=== PATIENT | female | born 1985 | race Native Hawaiian/Other Pacific Islander ===

== ENCOUNTER 2016-05-29 17:51 | Outpatient (CLI) | payer MEDICAID ==
[2016-05-29 18:50] LABS: APPEARANCE,URINE SLIGHTLY-CLOUDY; BILIRUBIN,URINE NEGATIVE (NEGATIVE); GLUCOSE, URINE NEGATIVE (NEGATIVE); KETONES,URINE NEGATIVE (NEGATIVE); LEUKOCYTE ESTERASE,URINE SMALL (NEGATIVE); NITRITE,URINE NEGATIVE (NEGATIVE); PROTEIN,URINE NEGATIVE (NEGATIVE); URINE SPECIFIC GRAVITY 1.016
[2016-05-29 19:06] LABS: URINE BARBITURATES SCREEN NEGATIVE; URINE METHADONE SCREEN NEGATIVE; URINE OPIATES LOW NEGATIVE; URINE PHENCYCLIDINE SCREEN NEGATIVE
[2016-05-29] MEDS ORDERED: HYDROXYZINE PAMOATE 50 MG CAPSULE PO ONE (19:25)
[2016-05-29] MEDS ORDERED: HYDROXYZINE PAMOATE 50 MG CAPSULE ONE (19:42)
== END 2016-05-29 19:25 | disposition home or self-care (01) ==
LOC: ER 17:51 → EDSTATUS 17:59 → LC 19:25
PROVIDERS: ATTEND Obstetrics & Gynecology
PROC: 4A1HXCZ Monitoring of Products of Conception, Cardiac Rate, External Approach (ICD-10-PCS; principal; 2016-05-29)
DX: O47.03 False labor before 37 completed weeks of gestation, third trimester (principal); Z3A.35 35 weeks gestation of pregnancy
CPT/HCPCS: 59025; 81001; 80307; J3490

== ENCOUNTER 2016-06-28 20:16 | Inpatient (IN) | payer MEDICAID ==
[~2016-06-28 20:16] MED LIST: GLYCOPYRROLATE INJ 0.4 MG/2 ML VIAL ONE; NEOSTIGMINE METHYLSULFATE 10 MG/10 ML VIAL ONE; SUCCINYLCHOLINE CHLORIDE INJ 200 MG/10 ML VIAL ONE
[2016-06-28] MEDS ORDERED: ZOLPIDEM TARTRATE 5 MG TABLET PO PRN (20:21)
[2016-06-28] MEDS ORDERED: RINGERS SOLUTION,LACTATED 300 ML IV ONE (20:21)
[2016-06-28] MEDS ORDERED: MAG HYDROX/AL HYDROX/SIMETH SUSP 30 ML UDCUP PO PRN (20:21)
[2016-06-28] MEDS ORDERED: ACETAMINOPHEN 325 MG TABLET PO PRN (20:21)
[2016-06-28] MEDS ORDERED: PENICILLIN G POTASSIUM 5,000,000 UNIT in DEXTROSE 5%-WATER 100 ML IV ONE (20:30)
[2016-06-28] MEDS ORDERED: DINOPROSTONE 10 MG VAGINAL INSERT.SR PV ONE (20:30)
[2016-06-28 20:36] LABS: APPEARANCE,URINE SLIGHTLY-CLOUDY; BILIRUBIN,URINE NEGATIVE (NEGATIVE); GLUCOSE, URINE NEGATIVE (NEGATIVE); KETONES,URINE TRACE mg/dL (NEGATIVE); LEUKOCYTE ESTERASE,URINE TRACE (NEGATIVE); NITRITE,URINE POSITIVE (NEGATIVE); PROTEIN,URINE NEGATIVE (NEGATIVE); URINE SPECIFIC GRAVITY 1.015
[2016-06-28 20:54] LABS: URINE BARBITURATES SCREEN NEGATIVE; URINE METHADONE SCREEN NEGATIVE; URINE OPIATES LOW NEGATIVE; URINE PHENCYCLIDINE SCREEN NEGATIVE
[2016-06-28 21:05] LABS: ABSOLUTE EOSINOPHILS # (AUTO) 0.2 10^3/uL (0.0-0.6); ABSOLUTE LYMPHOCYTES (AUTO) 1.2 10^3/uL (0.5-4.7); ABSOLUTE MONOCYTES (AUTO) 0.7 10^3/uL (0.1-1.4); ABSOLUTE NEUT (AUTO) 8.9 10^3/uL (1.7-8.2); BASOPHILS % (AUTO) 0.2 % (0-2); EOSINOPHILS % (AUTO) 1.6 % (0-6); LYMPHOCYTES % (AUTO) 10.6 % (13-45); MEAN CORPUSCULAR HEMOGLOBIN 27.9 pg (27.0-33.4); MEAN CORPUSCULAR HGB CONC 32.5 g/dL (32.0-36.0); MEAN CORPUSCULAR VOLUME 86 fl (80-97); MONOCYTES % (AUTO) 6.2 % (3-13); RED BLOOD COUNT 4.65 10^6/uL (3.72-5.28); SEGMENTED NEUTROPHILS % (AUTO) 81.4 % (42-78); WHITE BLOOD COUNT 10.9 10^3/uL (4.0-10.5)
[2016-06-28] MEDS ORDERED: DINOPROSTONE 10 MG VAGINAL INSERT.SR ONE (21:38)
[2016-06-28] MEDS: RINGERS SOLUTION,LACTATED 1,000 ML IV PRN (21:41)
--- NOTE | 2016-06-28 22:00 | L&D Flow Sheet ---
LD Flowsheet Datetime Report Generated by CPN: 06/28/2016 22:00 Datetime: 06/28/2016 21:45 NBP Sys/Lucia/Mean (mmHg): 108 (QS system process) : 67 (QS system process) : 81 (QS system process) Pulse: 78 (QS system process) LaborFlag: Labor (QS system process) Datetime: 06/28/2016 21:22 Level of Consciousness: Fully Conscious (Linda Heather, RN) DTR's/Clonus: DTRs 2+; No Clonus (Linda Romero RN) Headache: Denies (Linda Romero RN) Breath Sounds, Left: Clear and Equal (Linda Romero RN) Breath Sounds, Right: Clear and Equal (Linda Romero RN) Nausea/Vomiting: Denies (Linda Romero RN) RUQ Epigastric Pain: Denies (Linda Romero RN) Datetime: 06/28/2016 21:10 NBP Sys/Lucia/Mean (mmHg): 122 (QS system process) : 74 (QS system process) : 92 (QS system process) Pulse: 81 (QS system process) LaborFlag: Labor (QS system process) Datetime: 06/28/2016 20:59 Dilatation (cm): inner os closed/ outer os thin and 2-3cm (Linda Romero RN) Effacement (%): thick (Linda Romero RN) Station: oop (Linda Romero RN) Exam by: erna romero (Linda Romero RN)
[2016-06-28] MEDS ORDERED: PENICILLIN G-K 5 MILLION UNIT VIAL ONE (22:27)
[2016-06-28] MEDS ORDERED: MISOPROSTOL 0.2 MG TABLET ONE (23:04)
[2016-06-28] MEDS ORDERED: OXYTOCIN/NORMAL SALINE 20 UNIT/1,000 ML RTUINJ ONE (23:04)
[2016-06-28] MEDS ORDERED: LIDOCAINE 1% INJ-PF (10 MG/ML) 30 ML SDV ONE (23:04)
[2016-06-29] MEDS ORDERED: EPHEDRINE SULFATE INJ 50 MG/1 ML AMPULE ONE (00:25)
[2016-06-29] MEDS ORDERED: FENTANYL CITRATE INJ/PF 100 MCG/2 ML AMPUL ONE ×4 (00:25→05:09)
[2016-06-29] MEDS ORDERED: PHENYLEPHRINE HCL INJ/PF 10 MG/1 ML SDV ONE ×2 (00:25→02:27)
[2016-06-29] MEDS ORDERED: FENTANYL/BUPIVACAINE/NS/PF 200 MCG/100 ML RTUINJ EPI ONE (00:26)
[2016-06-29] MEDS ORDERED: BUPIVACAINE HCL 0.25 % INJ/PF (2.5 MG/1 ML) 30 ML VIAL ONE (00:26)
[2016-06-29] MEDS ORDERED: PENICILLIN G POTASSIUM 2,500,000 UNIT in DEXTROSE 5%-WATER 50 ML IV SCH (00:30)
[2016-06-29] MEDS: RINGERS SOLUTION,LACTATED 1,000 ML IV PRN ×2 (00:45→01:00)
[2016-06-29] MEDS ORDERED: PENICILLIN G-K 5 MILLION UNIT VIAL ONE (01:53)
[2016-06-29] MEDS ORDERED: CITRIC ACID/SODIUM CITRATE ORAL SOLN 15 ML UDCUP ONE (02:10)
[2016-06-29] MEDS ORDERED: CEFAZOLIN 2 GM/D5W RTU 2 GM/50 ML RTUPB IV ONE (02:10)
[2016-06-29] MEDS ORDERED: ACETAMINOPHEN 325 MG TABLET PO PRN (02:14)
[2016-06-29] MEDS ORDERED: DIPH/PERTUSS(ACELL)/TETANUS VAC/PF 0.5 ML SYR (>=10YO) IM PRN (02:14)
[2016-06-29] MEDS ORDERED: PROMETHAZINE HCL INJ 25 MG/1 ML VIAL IV PRN ×2 (02:14→05:19)
[2016-06-29] MEDS ORDERED: RINGERS SOLUTION,LACTATED 1,000 ML IV PRN (02:14)
[2016-06-29] MEDS ORDERED: SIMETHICONE 80 MG TAB.CHEW PO PRN (02:14)
[2016-06-29] MEDS ORDERED: MEASLES,MUMPS&RUBELLA VACC/PF 0.5 ML VIAL SUBCUT PRN (02:14)
[2016-06-29] MEDS ORDERED: OXYCODONE-ACETAMINOPHEN 5-325 MG TABLET PO PRN ×2 (02:14)
[2016-06-29] MEDS ORDERED: OXYTOCIN/NORMAL SALINE 1,000 ML IV PRN (02:14)
[2016-06-29] MEDS ORDERED: HYDROMORPHONE HCL INJ/PF 2 MG/ML AMPULE IV PRN (02:14)
[2016-06-29] MEDS ORDERED: ACETAMINOPHEN 100 ML IV PRN (02:14)
[2016-06-29] MEDS ORDERED: OXYTOCIN/NORMAL SALINE 0 UNIT/0 ML RTUINJ ONE (02:26)
[2016-06-29] MEDS ORDERED: OXYTOCIN 10 UNIT/ML VIAL ONE (02:27)
[2016-06-29] MEDS ORDERED: ONDANSETRON HCL INJ/PF 4 MG/2 ML SDV ONE (02:27)
[2016-06-29] MEDS ORDERED: SODIUM BICARBONATE 8.4% INJ 50 MEQ/50 ML DISP.SYRIN ONE (02:28)
[2016-06-29] MEDS ORDERED: LIDOCAINE 2%/EPINEPHRINE INJ 20 ML VIAL ONE (02:28)
[2016-06-29] MEDS ORDERED: MIDAZOLAM 2 MG/2 ML INJ ONE (03:09)
[2016-06-29] MEDS ORDERED: KETOROLAC TROMETHAMINE INJ/PF 30 MG/1 ML SDV INJ ONE (03:15)
[2016-06-29] MEDS ORDERED: PROPOFOL INJ 200 MG/20 ML VIAL IV ONE (03:33)
[2016-06-29] MEDS ORDERED: MORPHINE SULFATE 10 MG/ML INJ ONE (03:33)
[2016-06-29] MEDS ORDERED: NITROFURANTOIN MONOHYD/M-CRYST 100 MG CAPSULE PO ONE (04:30)
--- NOTE | 2016-06-29 04:30 | Operative Report ---
Operative Report DATE OF SURGERY: 06/29/16 PREOPERATIVE DIAGNOSIS: Brow/face presentation POSTOPERATIVE DIAGNOSIS: Same brown/face presentation with mentum anterior OPERATION: Primary via low transverse uterine incision with planned cystotomy SURGEON: DEO ESTRELLA WATERPROOF BAG SEWER: OR staff ANESTHESIA: GA TISSUE REMOVED OR ALTERED: Placenta COMPLICATIONS: The Carey catheter was not draining the bladder. The bladder was hugely distended obstructing access to the uterus. Therefore a very small cystotomy was made in the dome of the bladder. This decompressed the bladder and allowed access to the low uterine segment. ESTIMATED BLOOD LOSS: 500 mL INTRAOPERATIVE FINDINGS: Baby girl Apgars 7 and 8 7 lbs. 15 oz. brow presentation with mentum anterior. PROCEDURE: Patient was taken to the OR and placed in supine position after her spinal anesthesia. She is prepared and draped in sterile fashion. Carey was placed for drainage of the bladder. Low transverse incision was made and carried down the level of the fascia. The fascial incision was made with knife and extended bilaterally with curved Hyde scissors. The fascia was off the rectus muscles using sharp and blunt dissection. The rectus muscles are in the midline. At this point was determined determined that the bladder was greatly distended. The Carey did not appear to be working. The patient was under general anesthesia and we were working with a time limit. I initially attempted to use a 18-gauge needle on a 60 mL syringe to draw urine output the bladder from the dome however this was quite slow. Therefore a small half centimeter incision was made with scalpel blade which allowed me to decompress the bladder much quicker. The peritoneum was entered without incident. Bladder blade was placed in uterine segment was identified. A low transverse incision was made creating a bladder flap. Bladder blade was placed low transverse uterine incision was made with the knife and extended with fingertips. The baby was delivered with some fundal pressure. Mouth and nose were suctioned free. The cord is doubly clamped and cut. Baby is passed off to the applications administrator in attendance. The placenta was manually extracted with trailing membranes. The uterus was externalized wrapped in a moist lap sponge. Uterine contents wiped free. The head was low in the pelvis and there was an extension of the uterine incision to the left. A branch of the uterine artery was bleeding at the left incision and these were quickly clamped and tied off with a 0 chromic suture. Uterus was closed with a running locking layer of 0 chromic suture using the second layer to imbricate the first completing a double layer closure of the uterus. The serosa was closed with a running 2-0 chromic stitch. The pelvis was irrigated and suctioned free of fluid the uterus was replaced in the abdomen. Next the bladder was inspected. I was unable to locate the incision in the dome of the bladder on exam. The Carey catheter could be felt in the bladder. Next we filled the bladder with 200 mL of saline and there was no evidence of leaking. The saline was allowed to drain out of the bladder. Next the bladder was filled with 150 mL of sterile milk and there was no evidence of bladder leaking. The bladder appeared to be sealed. This makes sense as the incision made was smaller than a incision for a suprapubic catheter. As a safeguard I will drain the bladder for 10 days with Carey catheter in place. The abdominal wall peritoneum was closed with running 2-0 chromic stitch. Fascia was closed with a running 0 Vicryl in 2 segments. Jorge's layer was brought together with 0 plain gut stitch and the skin was closed with running subcuticular 4-0 undyed Vicryl stitch. The wound was dressed mother and baby did well.
--- NOTE | 2016-06-29 04:57 | Delivery Summary ---
Del Sum A-C Datetime Report Generated by CPN: 06/29/2016 04:57 ADMISSION DATA Chief Complaint: Scheduled Induction of Labor Indication for Induction: Maternal Diabetes Admission Impression: Induction of Labor Admit Provider Comments: efw = 8 lbs DELIVERY PERSONNEL Delivery Doctor:: Stephanie Costa MD Anesthesiologist:: Deidra Rubio MD OIL WELL FISHING TOOL TECHNICIAN:: Prem Hess CRNA Labor and Delivery Nurse:: Char Greenfield RNfiller picker Nurse:: Linda Romero RN Neonatal Nurse Practitioner:: LYNDA Hager Nursery Nurse:: Kailey Granadosb, RN Patient Safety Attendant/THEATER TEACHER: Yanelis Ji, ST Patient Safety Attendant/THEATER TEACHER: Judy Keys, ST MATERNAL INFORMATION Delivery Anesthesia: General Maternal Complications: None LABOR SUMMARY EDC: 06/27/2016 00:00 No. Babies in Womb: 1 Attempted: No Labor Anesthesia: Epidural LABOR INFORMATION Reason for Induction: Maternal Diabetes Onset of Labor: 06/29/2016 22:41 Cervical Ripening Agents: Cervidil Oxytocin: N/A Group B Beta Strep: positive Antibiotics # of Doses: 1 Antibiotics Time of Last Dose: 3 Name of Antibiotic Given: pcn MEMBRANES Membranes Rupture Method: Spontaneous Rupture of Membranes: 06/28/2016 22:56 Length of Rupture (hr): 4.13 Amniotic Fluid Color: Light Meconium Amniotic Fluid Amount: Copious Amniotic Fluid Odor: Normal STAGES OF LABOR Stage 3 hr: 0 Stage 3 min: 1 Total Time in Labor hr: -19 Total Time in Labor min: -36 VAGINAL DELIVERY Episiotomy: None Laceration Extension: N/A Laceration Type: None CSECTION DELIVERY Primary Indication: Transverse/Complex Presentation Secondary Indication: N/A CSection Urgency: Non-Scheduled CSection Incidence: Primary Labor: Labor Elective: N/A CSection Incision: Lower Uterine Transverse BABY A INFORMATION Delivery Date/Time: 06/29/2016 03:04 Method of Delivery: (Annotations: Data stored by [facility] on behalf of user) Born in Route : No : N/A Forceps: N/A Vacuum Extraction: N/A Shoulder Dystocia : No PRESENTATION/POSITION BABY A Presentation: Other Cephalic Presentation: Brow Breech Presentation: N/A PLACENTA INFORMATION BABY A Placenta Delivery Time : 06/29/2016 03:05 Placenta Method of Delivery: Manual Removal Placenta Status: Delivered SCORES BABY A Heart Rate 1 min: >100 bpm Resp Effort 1 min: Good Cry Reflex Irritability 1 min: Cough or Sneeze or Pulls Away Muscle Tone 1 min: Some Flexion of Extremities Color 1 min: Blue/Pale SCORE 1 MIN: 7 Heart Rate 5 min: >100 bpm Resp Effort 5 min: Good Cry Reflex Irritability 5 min: Cough or Sneeze or Pulls Away Muscle Tone 5 min: Active Motion Color 5 min: Body [place], Extremities Blue SCORE 5 MIN: 9 INFORMATION BABY A Gestational Age at Delivery: 40.2 Gestational Status: Full Term- 39- 40.6 Weeks Outcome : Liveborn Infant Condition : Stable Infant Sex: Female IDENTIFICATION BABY A Infant Verification Date/Time: 06/29/2016 03:24 ID Band Number: [id number] Mother's Name Verified: Yes Infant RN Verifying : K Fanny RN Additional Verifying Personnel: Lynn Romero RN WEIGHT/LENGTH BABY A Birthweight (gm): 3590 Weight (lb): 7 Infant Weight (oz): 15 Infant Length (in): 19.50 Length (cm): 49.53 CORD INFORMATION BABY A No. Cord Vessels: 3 Nuchal Cord : N/A Cord Blood Taken: Yes-For Storage (Mom's Blood type +) Infant Suction: Mouth; Nose ASSESSMENT BABY A Skin to Skin: No BABY B INFORMATION : N/A
[2016-06-29] MEDS ORDERED: MEPERIDINE HCL/PF INJ 25 MG/1 ML DISP.SYRIN ONE (05:09)
[2016-06-29] MEDS ORDERED: FENTANYL CITRATE INJ/PF 100 MCG/2 ML AMPUL IV PRN ×2 (05:17→05:18)
[2016-06-29] MEDS ORDERED: FENTANYL CITRATE INJ/PF 100 MCG/2 ML AMPUL INJ PRN (05:18)
[2016-06-29] MEDS ORDERED: ONDANSETRON HCL INJ/PF 4 MG/2 ML SDV IV PRN (05:20)
[2016-06-29] MEDS ORDERED: DIPHENHYDRAMINE HCL 50 MG/ML VIAL IV PRN (05:21)
[2016-06-29] MEDS ORDERED: LABETALOL HCL INJ 20 MG/4 ML DISP.SYRIN IV PRN (05:22)
[2016-06-29] MEDS ORDERED: MEPERIDINE HCL/PF INJ 25 MG/1 ML DISP.SYRIN IV PRN (05:24)
--- NOTE | 2016-06-29 06:29 | Admission Physical ---
Datetime Report Generated by CPN: 06/29/2016 06:28 CURRENT ADMISSION Chief Complaint: Scheduled Induction of Labor Indication for Induction: Maternal Diabetes Admit Plan: Admit to Unit; Initiate Labor Induction Protocol ALLERGIES Medication Allergies: No Medication Allergies: No Known Allergies (06/28/2016) Medication Allergies: No Known Allergies (05/29/2016) Medication Allergies: No Known Allergies (04/27/2012) Latex: No Latex Allergies Food Allergies: denies Environmental Allergies: denies OBSTETRICAL HISTORY EDC: 06/27/2016 00:00 : 3 Para: 2 Term: 2 : 0 SAB: 0 IAB: 0 Livin Gestational Diabetes: Yes Rh Sensitization: No Incompetent Cervix: No CHRISTOPHER: No Infertility: No ART Treatment: No Uterine Anomaly: No IUGR: No Hx Previous C/S: No Macrosomia: No Hx Loss/Stillborn: No PIH: No Hx : No Placenta Previa/Abruption: No Depression/PP Depression: No PTL/PROM: No Post Hemorrhage: No Current Procedures: Ultrasound; NST Obstetrical History Comments: G1:04/2012: 41 weeks G2:01/2014: 39.2 weeks G3: current , GDM, diet controlled SEE RECORDS Alcohol: No Marijuana : No Cocaine: No Other Illicit Drugs: No Cigarettes: Former Smoker. 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 Surgery: No Heart Disease: No Hosp/Surgery: Yes Autoimmune Disorder: No Anesthetic Complications: No Kidney Disease: No Abnormal Pap Smear: No Neuro/Epilepsy: No Psychiatric Disorders: No Other Medical Diseases: No Hepatitis/Liver Disease: No Significant Family History: No Varicosities/Phlebitis: No Trauma/Violence : No Thyroid Dysfunction: No Medical History Comments: x 2 INFECTIOUS HISTORY Gonorrhea: No Genital Herpes: No Chlamydia: No Tuberculosis: No Syphilis: No Hepatitis: No HIV/AIDS Exposure: No Rash or Viral Illness: No HPV: No PHYSICAL EXAM General: Normal HEENT: Normal Neurologic: Normal Thyroid: Normal Heart: Normal Lungs: Normal Breast: Deferred Back: Normal Abdomen: Normal Genitourinary Exam: Normal Extremities: Normal DTRs: Normal Pelvic Type: Adequate Vital Signs: Reviewed VAGINAL EXAM Dilatation: 1 Effacement: 50 Station: -2 MEMBRANES Pooling: Negative Membranes: Intact FETUS A EGA: 40.1 FHR- Baseline: 120 Decelerations: None FHR Category: Category I Presentation: Oblique Admit Comment: efw = 8 lbs PLANS FOR LABOR AND DELIVERY Labor and Delivery: None Pain Management: Natural Feeding Preference: Formula Benefit of Breast Feed Discussed: Yes Circumcision: N/A INFORMED CONSENT Signature: with User ID: [email or web address]
--- NOTE | 2016-06-29 07:01 | L&D Flow Sheet ---
LD Flowsheet Datetime Report Generated by CPN: 06/29/2016 07:00 Datetime: 06/29/2016 06:16 NBP Sys/Lucia/Mean (mmHg): 98 (QS system process) : 51 (QS system process) : 69 (QS system process) Pulse: 86 (QS system process) Datetime: 06/29/2016 06:15 Pulse: 95 (QS system process) Pulse: 93 (QS system process) SpO2 (%): 100 (QS system process) SpO2 (%): 94 (QS system process) Datetime: 06/29/2016 06:11 NBP Sys/Lucia/Mean (mmHg): 108 (QS system process) : 64 (QS system process) : 81 (QS system process) Pulse: 73 (QS system process) Datetime: 06/29/2016 06:10 Vital Signs Stage of : Recovery (Char Greenfield, RN) Pulse: 76 (QS system process) Respirations: 18 (Char Greenfield, RN) SpO2 (%): 99 (QS system process) Pain Pain Scale: 4 (Char Greenfield, RN) Pain Presence: Constant (Char Greenfield, RN) Pain Type: Burning (Char Greenfield, RN) Pain Location: Abdomen (Char Greenfield, RN) Pain Goal: 1 (Char Greenfield, RN) Pain Relief Measures: Pain Medication Given (Char Greenfeild, RN) Datetime: 06/29/2016 06:06 NBP Sys/Lucia/Mean (mmHg): 110 (QS system process) : 65 (QS system process) : 82 (QS system process) Pulse: 69 (QS system process) Datetime: 06/29/2016 06:05 Pulse: 73 (QS system process) SpO2 (%): 99 (QS system process) Datetime: 06/29/2016 06:01 NBP Sys/Lucia/Mean (mmHg): 112 (QS system process) : 64 (QS system process) : 82 (QS system process) Pulse: 71 (QS system process) Datetime: 06/29/2016 06:00 Vital Signs Stage of : Recovery (Char Greenfield, RN) Pulse: 67 (QS system process) Pulse: 83 (QS system process) Respirations: 18 (Char Greenfield, RN) SpO2 (%): 99 (QS system process) SpO2 (%): 90 (QS system process) Pain Pain Scale: 3 (Char Greenfield, RN) Pain Presence: Constant (Char Greenfield, RN) Pain Type: Burning (Char Greenfield, RN) Pain Location: Abdomen (Char Greenfield, RN) Pain Goal: 1 (Char Greenfield, RN) Datetime: 06/29/2016 05:56 NBP Sys/Lucia/Mean (mmHg): 111 (QS system process) : 62 (QS system process) : 81 (QS system process) Pulse: 68 (QS system process) Datetime: 06/29/2016 05:55 Pulse: 71 (QS system process) SpO2 (%): 99 (QS system process) Datetime: 06/29/2016 05:51 NBP Sys/Lucia/Mean (mmHg): 113 (QS system process) : 68 (QS system process) : 85 (QS system process) Pulse: 77 (QS system process) Datetime: 06/29/2016 05:50 Pulse: 67 (QS system process) SpO2 (%): 99 (QS system process) Datetime: 06/29/2016 05:48 Vital Signs Stage of : Recovery (Char Greenfield, RN) Datetime: 06/29/2016 05:46 NBP Sys/Lucia/Mean (mmHg): 115 (QS system process) : 69 (QS system process) : 88 (QS system process) Pulse: 71 (QS system process) Datetime: 06/29/2016 05:45 Vital Signs Stage of : Recovery (Char Greenfield, RN) Pulse: 74 (QS system process) Respirations: 16 (Char Greenfield, RN) SpO2 (%): 99 (QS system process) Datetime: 06/29/2016 05:44 Pain Pain Scale: 2 (Char Greenfield, RN) Pain Presence: Constant (Char Greenfield, RN) Pain Type: Burning (Char Greenfield, RN) Pain Location: Abdomen (Char Greenfield, RN) Pain Goal: 1 (Char Greenfield, RN) Pain Relief Measures: Pain Medication Given (Char Greenfield, RN) Datetime: 06/29/2016 05:41 NBP Sys/Lucia/Mean (mmHg): 111 (QS system process) : 69 (QS system process) : 84 (QS system process) Pulse: 75 (QS system process) Datetime: 06/29/2016 05:40 Pulse: 74 (QS system process) SpO2 (%): 100 (QS system process) Datetime: 06/29/2016 05:36 NBP Sys/Lucia/Mean (mmHg): 112 (QS system process) : 64 (QS system process) : 83 (QS system process) Pulse: 62 (QS system process) Datetime: 06/29/2016 05:35 Pulse: 64 (QS system process) SpO2 (%): 100 (QS system process) Datetime: 06/29/2016 05:31 NBP Sys/Lucia/Mean (mmHg): 117 (QS system process) : 71 (QS system process) : 89 (QS system process) Pulse: 73 (QS system process) Datetime: 06/29/2016 05:30 Vital Signs Stage of : Recovery (Char Greenfield, RN) Pulse: 67 (QS system process) Respirations: 18 (Char Greenfield, RN) SpO2 (%): 100 (QS system process) Pain Pain Scale: 2 (Char Greenfield, RN) Pain Presence: Constant (Char Greenfield, RN) Pain Type: Burning (Char Greenfield, RN) Pain Location: Abdomen (Char Greenfield, RN) Pain Goal: 1 (Char Greenfield, RN) Pain Relief Measures: Comfort Measures (Char Greenfield, RN) Datetime: 06/29/2016 05:26 Vital Signs Stage of : Recovery (Char Greenfield, RN) NBP Sys/Lucia/Mean (mmHg): 118 (QS system process) : 70 (QS system process) : 89 (QS system process) Pulse: 74 (QS system process) Datetime: 06/29/2016 05:25 Pulse: 73 (QS system process) SpO2 (%): 100 (QS system process) Datetime: 06/29/2016 05:21 NBP Sys/Lucia/Mean (mmHg): 116 (QS system process) : 66 (QS system process) : 85 (QS system process) Pulse: 63 (QS system process) Datetime: 06/29/2016 05:20 Pulse: 60 (QS system process) SpO2 (%): 100 (QS system process) Datetime: 06/29/2016 05:17 NBP Sys/Lucia/Mean (mmHg): 119 (QS system process) : 67 (QS system process) : 88 (QS system process) Pulse: 60 (QS system process) Datetime: 06/29/2016 05:15 Vital Signs Stage of : Recovery (Char Greenfield, RN) Pulse: 60 (QS system process) Respirations: 16 (Char Greenfield, RN) SpO2 (%): 100 (QS system process) Pain Pain Scale: 3 (Char Greenfield, RN) Pain Presence: Constant (Char Greenfield, RN) Pain Type: Burning (Char Greenfield, RN) Pain Location: Abdomen (Char Greenfield, RN) Pain Goal: 1 (Char Greenfield, RN) Pain Relief Measures: Pain Medication Given (Char Greenfield, RN) Datetime: 06/29/2016 05:12 Vital Signs Stage of : Recovery (Char Greenfield, RN) NBP Sys/Lucia/Mean (mmHg): 122 (QS system process) : 57 (QS system process) : 82 (QS system process) Pulse: 61 (QS system process) Datetime: 06/29/2016 05:10 Pulse: 63 (QS system process) SpO2 (%): 100 (QS system process) Datetime: 06/29/2016 05:05 Pulse: 64 (QS system process) SpO2 (%): 100 (QS system process) Datetime: 06/29/2016 05:01 NBP Sys/Lucia/Mean (mmHg): 121 (QS system process) : 72 (QS system process) : 90 (QS system process) Pulse: 64 (QS system process) Datetime: 06/29/2016 05:00 Vital Signs Stage of : Recovery (Char Greenfield, RN) Pulse: 61 (QS system process) SpO2 (%): 100 (QS system process) Datetime: 06/29/2016 04:56 NBP Sys/Lucia/Mean (mmHg): 117 (QS system process) : 72 (QS system process) : 90 (QS system process) Pulse: 62 (QS system process) Datetime: 06/29/2016 04:55 Pulse: 60 (QS system process) SpO2 (%): 100 (QS system process) Datetime: 06/29/2016 04:51 NBP Sys/Lucia/Mean (mmHg): 121 (QS system process) : 68 (QS system process) : 90 (QS system process) Pulse: 63 (QS system process) Datetime: 06/29/2016 04:50 Pulse: 66 (QS system process) SpO2 (%): 100 (QS system process) Datetime: 06/29/2016 04:47 Vital Signs Stage of : Recovery (Char Greenfield, RN) Pain Pain Scale: 1 (Char Greenfield, RN) Pain Presence: Constant (Char Greenfield, RN) Pain Type: Ache (Char Greenfield, RN) Pain Location: Abdomen (Char Greenfield, RN) Pain Goal: 1 (Char Greenfield, RN) Datetime: 06/29/2016 04:46 NBP Sys/Lucia/Mean (mmHg): 117 (QS system process) : 62 (QS system process) : 84 (QS system process) Pulse: 70 (QS system process) Datetime: 06/29/2016 04:45 Pulse: 63 (QS system process) SpO2 (%): 100 (QS system process) Datetime: 06/29/2016 04:41 NBP Sys/Lucia/Mean (mmHg): 114 (QS system process) : 63 (QS system process) : 84 (QS system process) Pulse: 74 (QS system process) SpO2 (%): 82 (QS system process) Datetime: 06/29/2016 04:40 Pulse: 66 (QS system process) SpO2 (%): 100 (QS system process) Datetime: 06/29/2016 04:36 NBP Sys/Lucia/Mean (mmHg): 115 (QS system process) : 72 (QS system process) : 88 (QS system process) Pulse: 63 (QS system process) Datetime: 06/29/2016 04:35 Pulse: 66 (QS system process) SpO2 (%): 100 (QS system process) Datetime: 06/29/2016 04:31 NBP Sys/Lucia/Mean (mmHg): 113 (QS system process) : 72 (QS system process) : 87 (QS system process) Pulse: 71 (QS system process) Datetime: 06/29/2016 04:30 Pulse: 59 (QS system process) SpO2 (%): 100 (QS system process) Datetime: 06/29/2016 04:26 NBP Sys/Lucia/Mean (mmHg): 111 (QS system process) : 64 (QS system process) : 83 (QS system process) Pulse: 64 (QS system process) Datetime: 06/29/2016 04:25 Pulse: 64 (QS system process) SpO2 (%): 100 (QS system process) Datetime: 06/29/2016 04:23 Vital Signs Stage of : Recovery (Linda Romero RN) Respirations: 16 (Linda Romero RN) Temperature (F): 97.4 (Linda Romero RN) Temperature (C): 36.3 (QS system process) Temperature Route: Axillary (Linda Romero RN) Pain Pain Scale: unable to assess, patient sleeping (Linda Kossmann, RN) Datetime: 06/29/2016 04:21 Vital Signs Stage of : Recovery (Linda Kossmann, RN) NBP Sys/Lucia/Mean (mmHg): 105 (QS system process) : 59 (QS system process) : 77 (QS system process) Pulse: 64 (QS system process) Datetime: 06/29/2016 04:20 Pulse: 67 (QS system process) SpO2 (%): 98 (QS system process) Patient Care Comments: Arrived in PACU (Linda Romero RN) LaborFlag: Labor (QS system process) Datetime: 06/29/2016 02:33 Patient Care Comments: Pt transferred to OR in bed accompanied by RNs, Dr Rubio (Desiree Escobedo RN) Communication Comments: Report to JESSIKA Greenfield. Care relinquished to JESSIKA Greenfield but JESSIKA Romero went to OR to assist. (Linda Romero RN) Datetime: 06/29/2016 02:31 Medication Comments: ancef 2 gm (Desiree Escobedo RN) Datetime: 06/29/2016 02:30 Uterine Activity Monitor Mode: External; Palpation (Linda Kossmann, RN) Frequency (min): 2-3 (Linda Kossmann, RN) Quality: Moderate (Linda Kossmann, RN) Duration (sec): 40-80 (Linda Kossmann, RN) Resting Tone (Palpate): Relaxed (Linda Kossmann, RN) Assessment A Monitor Mode: External US (Linda Susansmann, RN) FHR Baseline Rate : 140 (Linda Kossmann, RN) Variability: Moderate 6-25 bpm (Linda Kossmann, RN) Decelerations: Variable (Linda Kossmann, RN) Datetime: 06/29/2016 02:29 Communication Communication: Provider at Bedside (Char Greenfield, RN) Communication Comments: Dr [place]head at the bedside to bolus epidural (Char Greenfield, RN) Datetime: 06/29/2016 02:27 NBP Sys/Lucia/Mean (mmHg): 116 (QS system process) : 60 (QS system process) : 83 (QS system process) Pulse: 72 (QS system process) LaborFlag: Labor (QS system process) Datetime: 06/29/2016 02:26 Pulse: 72 (QS system process) SpO2 (%): 100 (QS system process) LaborFlag: Labor (QS system process) Datetime: 06/29/2016 02:21 Pulse: 72 (QS system process) SpO2 (%): 100 (QS system process) LaborFlag: Labor (QS system process) Datetime: 06/29/2016 02:16 Pulse: 85 (QS system process) SpO2 (%): 100 (QS system process) Pain Pain Scale: 4 (Linda Romero RN) Pain Presence: Intermittent (Linda Romero RN) Pain Type: Contraction (Linda Romero RN) Pain Location: Abdomen (Linda Romero RN) Pain Goal: 0 (Linda Romero RN) Pain Relief Measures: Comfort Measures (Annotations: Patient states epidural isnt working. provider aware.) (Linda Romero RN) LaborFlag: Labor (QS system process) Datetime: 06/29/2016 02:15 Uterine Activity Monitor Mode: External; Palpation (Linda Kossmann, RN) Frequency (min): 1.5-3 (Linda Romero, RN) Quality: Moderate (Linda Romero, RN) Duration (sec): 50-70 (Linda Romero, RN) Resting Tone (Palpate): Relaxed (Linda Romero, RN) Assessment A Monitor Mode: External US (Linda Romero, RN) FHR Baseline Rate : 150 (Linda Romero, RN) Variability: Moderate 6-25 bpm (Linda Romero, RN) Decelerations: Variable (Linda Duránkevin, RN) Datetime: 06/29/2016 02:13 NBP Sys/Lucia/Mean (mmHg): 123 (QS system process) : 66 (QS system process) : 89 (QS system process) Pulse: 84 (QS system process) Medication Comments: bicitra 15 mL PO (Desiree Escobedo RN) LaborFlag: Labor (QS system process) Datetime: 06/29/2016 02:12 Patient Care Comments: indio wipes to abd (Desiree Fanny, RN) Patient Care Comments: TEDs and SCDs applied (Desiree Fanny, RN) Datetime: 06/29/2016 02:11 Pulse: 80 (QS system process) SpO2 (%): 100 (QS system process) LaborFlag: Labor (QS system process) Datetime: 06/29/2016 02:10 Anesthesia Comments: dr. emberightshead aware of epidural request (Linda Romero, RN) Datetime: 06/29/2016 02:09 Communication Comments: Appropriate personnel notified of urgent csection for malpresentation (Linda Kossmann, RN) Datetime: 06/29/2016 02:06 Pulse: 80 (QS system process) SpO2 (%): 99 (QS system process) LaborFlag: Labor (QS system process) Datetime: 06/29/2016 02:04 Patient Care Comments: Urgent csection called for malpresentation (Linda Kossmann, RN) Datetime: 06/29/2016 02:03 Vaginal Exam Dilatation (cm): 8.0 (Linda Davisbarbara, RN) Exam by: DrKenyatta Costa (Linda Romero, RN) Vaginal Exam Comments: face presentation (Linda Romero, RN) Datetime: 06/29/2016 02:01 Pulse: 75 (QS system process) SpO2 (%): 99 (QS system process) LaborFlag: Labor (QS system process) Datetime: 06/29/2016:00 Uterine Activity Monitor Mode: External; Palpation (Linda Luis Armandoann, RN) Frequency (min): 2-4 (Linda Romero, RN) Quality: Moderate (Linda Romero, RN) Duration (sec): 60-80 (Linda Romero, RN) Resting Tone (Palpate): Relaxed (Linda Romero, RN) Assessment A Monitor Mode: External US (Linda Romero, JESSIKA) FHR Baseline Rate : 150 (Linda Romero, JESSIKA) Variability: Moderate 6-25 bpm (Linda Duránann, RN) Accelerations: 15X15 (Linda Davissmann, RN) Decelerations: Variable (Linda Romero, RN) Datetime: 06/29/2016 01:57 Patient Position/Activity: Left Lateral (Linda Romero, RN) Patient Care Comments: repositioned due to decelerations (Linda Romero, RN) Datetime: 06/29/2016 01:56 NBP Sys/Lucia/Mean (mmHg): 124 (QS system process) : 66 (QS system process) : 88 (QS system process) Pulse: 81 (QS system process) Pulse: 80 (QS system process) SpO2 (%): 99 (QS system process) LaborFlag: Labor (QS system process) Datetime: 06/29/2016 01:54 NBP Sys/Lucia/Mean (mmHg): 118 (QS system process) : 65 (QS system process) : 86 (QS system process) Pulse: 75 (QS system process) LaborFlag: Labor (QS system process) Datetime: 06/29/2016 01:51 Pulse: 76 (QS system process) SpO2 (%): 99 (QS system process) LaborFlag: Labor (QS system process) Datetime: 06/29/2016 01:50 Communication Comments: Dr. Costa aware of SVE, lates, and variables. MD on unit (Linda Heather, RN) Datetime: 06/29/2016 01:48 Actions for Decelerations: Side to Side (Linda Romero, RN) Datetime: 06/29/2016 01:47 NBP Sys/Lucia/Mean (mmHg): 114 (QS system process) : 57 (QS system process) : 82 (QS system process) Pulse: 83 (QS system process) LaborFlag: Labor (QS system process) Datetime: 06/29/2016 01:46 Pulse: 80 (QS system process) SpO2 (%): 100 (QS system process) Patient Position/Activity: Left Tilt (Linda Romero RN) LaborFlag: Labor (QS system process) Datetime: 06/29/2016 01:45 NBP Sys/Lucia/Mean (mmHg): 112 (QS system process) : 57 (QS system process) : 79 (QS system process) Pulse: 93 (QS system process) Uterine Activity Monitor Mode: External; Palpation (Linda Romero RN) Frequency (min): 0.5-3 (Linda Romero RN) Quality: Moderate (Linda Romero RN) Duration (sec): 30-70 (Linda Romero RN) Resting Tone (Palpate): Relaxed (Linda Romero RN) Assessment A Monitor Mode: External US (Linda Romero RN) FHR Baseline Rate : 150 (Linda Romero, RN) Variability: Moderate 6-25 bpm (Linda Romero, RN) Decelerations: Variable (Linda Romero, RN) LaborFlag: Labor (QS system process) Datetime: 06/29/2016 01:44 NBP Sys/Lucia/Mean (mmHg): 124 (QS system process) : 59 (QS system process) : 84 (QS system process) Pulse: 75 (QS system process) LaborFlag: Labor (QS system process) Datetime: 06/29/2016 01:43 NBP Sys/Lucia/Mean (mmHg): 129 (QS system process) : 77 (QS system process) : 94 (QS system process) Pulse: 88 (QS system process) LaborFlag: Labor (QS system process) Datetime: 06/29/2016 01:42 NBP Sys/Lucia/Mean (mmHg): 126 (QS system process) : 62 (QS system process) : 88 (QS system process) Pulse: 86 (QS system process) LaborFlag: Labor (QS system process) Datetime: 06/29/2016 01:41 NBP Sys/Lucia/Mean (mmHg): 131 (QS system process) : 66 (QS system process) : 95 (QS system process) Pulse: 85 (QS system process) Pulse: 75 (QS system process) SpO2 (%): 99 (QS system process) Vaginal Exam Dilatation (cm): 5.5 (Linda Romero RN) Effacement (%): 90 (Linda Romero RN) Station: -1 (Linda Romero RN) Exam by: JESSIKA Romero (Linda Romero RN) Amniotic Fluid Color: Light Meconium (Linda Romero RN) Amniotic Fluid Amount: Copious (Linda Romero RN) I/O Interventions: Carey Cath Inserted (Linda Romero RN) LaborFlag: Labor (QS system process) Datetime: 06/29/2016 01:40 NBP Sys/Lucia/Mean (mmHg): 107 (QS system process) : 60 (QS system process) : 78 (QS system process) Pulse: 77 (QS system process) LaborFlag: Labor (QS system process) Datetime: 06/29/2016 01:39 NBP Sys/Lucia/Mean (mmHg): 107 (QS system process) : 59 (QS system process) : 78 (QS system process) Pulse: 77 (QS system process) Epidural Procedure Other: Pump Started (Linda Romero RN) LaborFlag: Labor (QS system process) Datetime: 06/29/2016 01:38 NBP Sys/Lucia/Mean (mmHg): 106 (QS system process) : 55 (QS system process) : 74 (QS system process) Pulse: 75 (QS system process) LaborFlag: Labor (QS system process) Datetime: 06/29/2016 01:37 NBP Sys/Lucia/Mean (mmHg): 110 (QS system process) : 59 (QS system process) : 79 (QS system process) Pulse: 74 (QS system process) Epidural Procedure: Loading Dose (Linda Romero RN) LaborFlag: Labor (QS system process) Datetime: 06/29/2016 01:36 NBP Sys/Lucia/Mean (mmHg): 105 (QS system process) : 58 (QS system process) : 78 (QS system process) Pulse: 75 (QS system process) Pulse: 85 (QS system process) SpO2 (%): 99 (QS system process) LaborFlag: Labor (QS system process) Datetime: 06/29/2016 01:35 NBP Sys/Lucia/Mean (mmHg): 110 (QS system process) : 59 (QS system process) : 76 (QS system process) Pulse: 82 (QS system process) LaborFlag: Labor (QS system process) Datetime: 06/29/2016 01:34 NBP Sys/Lucia/Mean (mmHg): 104 (QS system process) : 71 (QS system process) : 84 (QS system process) Pulse: 93 (QS system process) LaborFlag: Labor (QS system process) Datetime: 06/29/2016 01:33 NBP Sys/Lucia/Mean (mmHg): 109 (QS system process) : 55 (QS system process) : 77 (QS system process) Pulse: 76 (QS system process) LaborFlag: Labor (QS system process) Datetime: 06/29/2016 01:32 NBP Sys/Lucia/Mean (mmHg): 106 (QS system process) : 50 (QS system process) : 71 (QS system process) Pulse: 83 (QS system process) Epidural Procedure: Test Dose (Linda Romero, RN) LaborFlag: Labor (QS system process) Datetime: 06/29/2016 01:31 NBP Sys/Lucia/Mean (mmHg): 100 (QS system process) : 55 (QS system process) : 75 (QS system process) Pulse: 86 (QS system process) Pulse: 91 (QS system process) SpO2 (%): 99 (QS system process) LaborFlag: Labor (QS system process) Datetime: 06/29/2016 01:30 NBP Sys/Lucia/Mean (mmHg): 99 (QS system process) : 54 (QS system process) : 74 (QS system process) Pulse: 89 (QS system process) Uterine Activity Monitor Mode: Palpation (Linda Romero RN) Frequency (min): 2-3 (Linda Romero RN) Quality: Moderate (Linda Romero RN) Duration (sec): 40-60 (Linda Romero RN) Resting Tone (Palpate): Relaxed (Linda Romero RN) Comments: unable to continuously monitor due to maternal habitus and positioning for epidural. doppler tones obtained during procedure 145 (Linda Romero RN) LaborFlag: Labor (QS system process) Datetime: 06/29/2016 01:29 NBP Sys/Lucia/Mean (mmHg): 119 (QS system process) : 75 (QS system process) : 88 (QS system process) Pulse: 92 (QS system process) LaborFlag: Labor (QS system process) Datetime: 06/29/2016 01:27 NBP Sys/Lucia/Mean (mmHg): 119 (QS system process) NBP Sys/Lucia/Mean (mmHg): 118 (QS system process) : 70 (QS system process) : 66 (QS system process) : 89 (QS system process) : 87 (QS system process) Pulse: 92 (QS system process) Pulse: 81 (QS system process) LaborFlag: Labor (QS system process) Datetime: 06/29/2016 01:26 NBP Sys/Lucia/Mean (mmHg): 113 (QS system process) : 58 (QS system process) : 81 (QS system process) Pulse: 78 (QS system process) Pulse: 90 (QS system process) SpO2 (%): 99 (QS system process) LaborFlag: Labor (QS system process) Datetime: 06/29/2016 01:25 NBP Sys/Lucia/Mean (mmHg): 121 (QS system process) : 75 (QS system process) : 92 (QS system process) Pulse: 89 (QS system process) LaborFlag: Labor (QS system process) Datetime: 06/29/2016 01:21 Pulse: 82 (QS system process) SpO2 (%): 99 (QS system process) Procedure TIME OUT Procedure Type: epidural (Linda Romero RN) Procedure Verify: Correct Patient Identity; Correct Side and Site are Marked; Accurate Procedure Consent Form; Agreement on Procedure to be Done; Correct Patient Position (Linda Davisbarbara, RN) Anesthesia Anesthesia Plans: Epidural (Linda Romero, RN) Epidural Positioning: Sitting (Linda Davisbarbara, RN) LaborFlag: Labor (QS system process) Datetime: 06/29/2016 01:20 Pulse: 88 (QS system process) SpO2 (%): 86 (QS system process) LaborFlag: Labor (QS system process) Datetime: 06/29/2016 01:16 Pulse: 90 (QS system process) SpO2 (%): 99 (QS system process) LaborFlag: Labor (QS system process) Datetime: 06/29/2016 01:15 Uterine Activity Monitor Mode: External; Palpation (Linda Kossmann, RN) Frequency (min): 2-4 (Linda Susansmann, RN) Quality: Moderate (Linda Susansmann, RN) Duration (sec): 60-100 (Linda Susansmann, RN) Resting Tone (Palpate): Relaxed (Linda Susansmann, RN) Assessment A Monitor Mode: External US (Linda Heather, RN) FHR Baseline Rate : 145 (Linda Duránkevin, RN) Variability: Moderate 6-25 bpm (Linda Duránann, RN) Decelerations: Early; Late (Linda Susansmann, RN) Datetime: 06/29/2016 01:11 Pulse: 86 (QS system process) SpO2 (%): 99 (QS system process) LaborFlag: Labor (QS system process) Datetime: 06/29/2016 01:10 NBP Sys/Lucia/Mean (mmHg): 96 (QS system process) : 55 (QS system process) : 73 (QS system process) Pulse: 91 (QS system process) LaborFlag: Labor (QS system process) Datetime: 06/29/2016 01:06 Pulse: 93 (QS system process) SpO2 (%): 99 (QS system process) LaborFlag: Labor (QS system process) Datetime: 06/29/2016 01:01 Pulse: 96 (QS system process) SpO2 (%): 100 (QS system process) LaborFlag: Labor (QS system process) Datetime: 06/29/2016:00 Uterine Activity Monitor Mode: External; Palpation (Lindalaisha Romero, RN) Frequency (min): 2-4 (Linda Romero, RN) Quality: Moderate (Linda Romero, RN) Duration (sec): 50-100 (Linda Romero, RN) Resting Tone (Palpate): Relaxed (Linda Romero, RN) Assessment A Monitor Mode: External US (Linda Romero, RN) FHR Baseline Rate : 150 (Linda Romero, RN) Variability: Minimal - Undetectable to <=5 bpm (Linda Kossmann, RN) Decelerations: Late (Linda Romero RN) Actions for Decelerations: IV Bolus (Linda Romero RN) Oxygen Method: Non-Rebreather (Linda Romero RN) Patient Care Comments: iv fluid bolusing, oxygen (Linda Romero RN) Datetime: 06/29/2016 00:56 Pulse: 88 (QS system process) SpO2 (%): 100 (QS system process) LaborFlag: Labor (QS system process) Datetime: 06/29/2016 00:51 Pulse: 85 (QS system process) SpO2 (%): 98 (QS system process) LaborFlag: Labor (QS system process) Datetime: 06/29/2016 00:46 Pulse: 90 (QS system process) SpO2 (%): 99 (QS system process) LaborFlag: Labor (QS system process) Datetime: 06/29/2016 00:45 Uterine Activity Monitor Mode: External; Palpation (Linda Romero RN) Frequency (min): 1.5-4 (Linda Romero RN) Quality: Moderate (Linda Romero RN) Duration (sec): 60-100 (Linda Romero RN) Resting Tone (Palpate): Relaxed (Linda Romero RN) Assessment A Monitor Mode: External US (Linda Romero RN) FHR Baseline Rate : 150 (Linda Romero, JESSIKA) Variability: Minimal - Undetectable to <=5 bpm (Linda Romero, JESSIKA) Decelerations: Late (Linda Romero, JESSIKA) Datetime: 06/29/2016 00:40 NBP Sys/Lucia/Mean (mmHg): 111 (QS system process) : 55 (QS system process) : 78 (QS system process) Pulse: 93 (QS system process) Pulse: 86 (QS system process) SpO2 (%): 99 (QS system process) Patient Care IV/Blood Work: New IV Bag Hung (Linda Romero RN) LaborFlag: Labor (QS system process) Datetime: 06/29/2016 00:35 Pulse: 91 (QS system process) SpO2 (%): 100 (QS system process) LaborFlag: Labor (QS system process) Datetime: 06/29/2016 00:30 Pulse: 97 (QS system process) SpO2 (%): 99 (QS system process) Uterine Activity Monitor Mode: External; Palpation (Linda Romero RN) Frequency (min): 2-3 (Linda Kossmann, RN) Quality: Moderate (Lindalaisha Duránann, RN) Duration (sec): 50-90 (Linda Romero, RN) Resting Tone (Palpate): Relaxed (Linda Duránann, RN) Assessment A Monitor Mode: External US (Lindalaisha Romero, RN) FHR Baseline Rate : 150 (Linda Romero, RN) Variability: Moderate 6-25 bpm (Linda Romero, RN) Decelerations: Late (Linda Susantorikevin, RN) LaborFlag: Labor (QS system process) Datetime: 06/29/2016 00:25 Pulse: 95 (QS system process) SpO2 (%): 100 (QS system process) LaborFlag: Labor (QS system process) Datetime: 06/29/2016 00:20 Pulse: 93 (QS system process) SpO2 (%): 100 (QS system process) LaborFlag: Labor (QS system process) Datetime: 06/29/2016 00:16 Pain Pain Scale: 4 (Linda Romero RN) Pain Type: Contraction (Linda Romero RN) Pain Location: Abdomen; Back (Linda Romero RN) Pain Relief Measures: Epidural Given (Linda Romero RN) Pain Assessment Comments: epidural requested (Linda Romero RN) Patient Care IV/Blood Work: IV Bolus Started (Linda Heather, RN) Comfort Measures: Breathing/Relaxation; Family Support (Linda Heather, RN) Procedure TIME OUT Procedure Type: epidural (Lindalaisha Romero, RN) Anesthesia Comments: requested epidural (Linda Heather, RN) LaborFlag: Labor (QS system process) Datetime: 06/29/2016 00:15 Pulse: 89 (QS system process) SpO2 (%): 100 (QS system process) Uterine Activity Monitor Mode: External; Palpation (Linda Heather, RN) Frequency (min): 2-4 (Linda Romero, RN) Quality: Moderate (Linda Heather, RN) Duration (sec): 60-90 (Linda Heather, RN) Resting Tone (Palpate): Relaxed (Linda Heather, RN) Assessment A Monitor Mode: External US (Linda Heather, ) FHR Baseline Rate : 150 (Linda Heather, RN) Variability: Moderate 6-25 bpm (Linda Susankevin, RN) Decelerations: None (Linda Susankevin, ) LaborFlag: Labor (QS system process) Datetime: 06/29/2016 00:10 NBP Sys/Lucia/Mean (mmHg): 102 (QS system process) : 54 (QS system process) : 73 (QS system process) Pulse: 88 (QS system process) Pulse: 86 (QS system process) SpO2 (%): 99 (QS system process) LaborFlag: Labor (QS system process) Datetime: 06/29/2016 00:05 Pulse: 88 (QS system process) SpO2 (%): 99 (QS system process) LaborFlag: Labor (QS system process) Datetime: 06/29/2016 00:00 Pulse: 98 (QS system process) SpO2 (%): 99 (QS system process) Uterine Activity Monitor Mode: External; Palpation (Linda Kossmann, RN) Frequency (min): 2-4 (Linda Kossmann, RN) Quality: Moderate (Linda Kossmann, RN) Duration (sec): 50-90 (Linda Kossmann, RN) Resting Tone (Palpate): Relaxed (Linda Kossmann, RN) Assessment A Monitor Mode: External US (Linda Susansmann, RN) FHR Baseline Rate : 150 (Linda Kossmann, RN) Variability: Moderate 6-25 bpm (Linda Kossmann, RN) Decelerations: Early (Linda Kossmann, RN) LaborFlag: Labor (QS system process) Datetime: 06/28/2016 23:55 Pulse: 86 (QS system process) SpO2 (%): 100 (QS system process) LaborFlag: Labor (QS system process) Datetime: 06/28/2016 23:50 Pulse: 85 (QS system process) SpO2 (%): 100 (QS system process) LaborFlag: Labor (QS system process) Datetime: 06/28/2016 23:45 Pulse: 90 (QS system process) SpO2 (%): 100 (QS system process) Uterine Activity Monitor Mode: External; Palpation (Linda Romero RN) Frequency (min): 2-4 (Linda Romero RN) Quality: Moderate (Linda Kossmann, RN) Duration (sec): 50-80 (Linda Romero, RN) Resting Tone (Palpate): Relaxed (Lindalaisha Romero, RN) Assessment A Monitor Mode: External US (Linda Romero, RN) FHR Baseline Rate : 155 (Linda Romero, RN) Variability: Moderate 6-25 bpm (Linda Romero, RN) Decelerations: None (Linda Romero, RN) LaborFlag: Labor (QS system process) Datetime: 06/28/2016 23:40 NBP Sys/Lucia/Mean (mmHg): 106 (QS system process) : 53 (QS system process) : 76 (QS system process) Pulse: 89 (QS system process) SpO2 (%): 100 (QS system process) LaborFlag: Labor (QS system process) Datetime: 06/28/2016 23:35 Pulse: 83 (QS system process) SpO2 (%): 100 (QS system process) LaborFlag: Labor (QS system process) Datetime: 06/28/2016 23:30 Pulse: 81 (QS system process) SpO2 (%): 99 (QS system process) Uterine Activity Monitor Mode: External; Palpation (Linda Romero RN) Frequency (min): 2-3 (Linda Romero RN) Quality: Moderate (Linda Romero RN) Duration (sec): 60-90 (Linda Romero RN) Resting Tone (Palpate): Relaxed (Linda Romero RN) Assessment A Monitor Mode: External US (Linda Kossmann, RN) FHR Baseline Rate : 155 (Linda Susansmkevin, RN) Variability: Moderate 6-25 bpm (Linda Heather, RN) Decelerations: Late (Linda Kossmann, RN) LaborFlag: Labor (QS system process) Datetime: 06/28/2016 23:25 Pulse: 83 (QS system process) SpO2 (%): 100 (QS system process) LaborFlag: Labor (QS system process) Datetime: 06/28/2016 23:20 Pulse: 84 (QS system process) SpO2 (%): 100 (QS system process) LaborFlag: Labor (QS system process) Datetime: 06/28/2016 23:15 Pulse: 80 (QS system process) SpO2 (%): 100 (QS system process) Uterine Activity Monitor Mode: External; Palpation (Linda Romero RN) Frequency (min): 1.5-4 (Linda Romero RN) Quality: Moderate (Linda Romero RN) Duration (sec): 40-70 (Linda Romero RN) Resting Tone (Palpate): Relaxed (Linda Romero RN) Assessment A Monitor Mode: Internal Scalp Electrode (Lindalaisha Romero, RN) FHR Baseline Rate : 160 (Lindalaisha Romero, RN) Decelerations: Variable (Linda Davistoriann, RN) LaborFlag: Labor (QS system process) Datetime: 06/28/2016 23:10 Pulse: 79 (QS system process) SpO2 (%): 100 (QS system process) Exam by: JESSIKA Romero (Char Greenfield, RN) Vaginal Bleeding: Normal Show (Char Greenfield, RN) Cervix, Consistency: Soft (Char Greenfield, RN) Cervix, Position: Midposition (Char Greenfield, RN) Vaginal Exam Comments: no change, fse was found to be sitting in the vagina unattached so was removed (Char Greenfield, RN) LaborFlag: Labor (QS system process) Datetime: 06/28/2016 23:05 Pulse: 84 (QS system process) SpO2 (%): 100 (QS system process) LaborFlag: Labor (QS system process) Datetime: 06/28/2016 23:00 Pulse: 82 (QS system process) SpO2 (%): 100 (QS system process) Temperature (F): 97.5 (Linda Romero RN) Temperature (C): 36.4 (QS system process) Temperature Route: Oral (Linda Romero RN) Uterine Activity Monitor Mode: External; Palpation (Linda Romero RN) Monitor Interventions for UA: Mcgill Adjusted (Linda Romero RN) Quality: Moderate (Linda Romero RN) Resting Tone (Palpate): Relaxed (Linda Romero RN) Contraction Comments: unable to determine contraction pattern due to maternal position. abdomen palpated as moderate contractions with resting tone soft. adjusting toco (Linda Romero RN) Assessment A Monitor Mode: Internal Scalp Electrode (Linda Romero, ) FHR Baseline Rate : 155 (Linda Romero, ) Decelerations: Variable (Linda Davisbarbara, ) Pain Pain Scale: 3 (Linda Romero RN) Pain Presence: Intermittent (Linda Romero RN) Pain Type: Contraction (Linda Romero RN) Pain Location: Abdomen; Back (Linda Romero RN) Pain Relief Measures: Comfort Measures (Linda Romero RN) Pain Coping: Talking Through Contractions; Breathing Through Contractions; Declines Medication or Epidural (Linda Romero RN) LaborFlag: Labor (QS system process) Datetime: 06/28/2016 22:56 Vaginal Exam Dilatation (cm): 5.0 (Linda Romero RN) Effacement (%): 90 (Linda Romero RN) Station: 0 (Linda Romero RN) Exam by: Dr. Costa (Linda Romero RN) Membrane Status: Ruptured (Linda Romero RN) Membranes Ruptured Date/Time: 06/28/2016 22:56 (Linda Romero RN) Membranes Rupture Method: Spontaneous (Linda Romero RN) Amniotic Fluid Color: Clear (Linda Romero RN) Amniotic Fluid Amount: Small (Linda Romero RN) Amniotic Fluid Odor: Normal (Linda Romero RN) Datetime: 06/28/2016 22:55 Pulse: 82 (QS system process) SpO2 (%): 100 (QS system process) LaborFlag: Labor (QS system process) Datetime: 06/28/2016 22:51 Communication Communication: Call/Page Placed to Provider (Desiree Fanny, RN) Communication Comments: Call placed to Dr Costa, request to review strip (Desiree Fanny, RN) Datetime: 06/28/2016 22:50 Pulse: 92 (QS system process) SpO2 (%): 100 (QS system process) LaborFlag: Labor (QS system process) Datetime: 06/28/2016 22:47 Pulse: 93 (QS system process) SpO2 (%): 93 (QS system process) Actions for Decelerations: Hands and Knees (Desiree Escobedo RN) LaborFlag: Labor (QS system process) Datetime: 06/28/2016 22:45 Uterine Activity Monitor Mode: External; Palpation (Linda Romero RN) Frequency (min): 1-2 (Linda Romero RN) Quality: Moderate (Linda Romero RN) Duration (sec): 40-150 (Linda Romero RN) Resting Tone (Palpate): Relaxed (Linda Romero, RN) Assessment A Monitor Mode: External US (Linda Davisbarbara, RN) FHR Baseline Rate : 150 (Linda Davistorikevin, RN) Variability: Moderate 6-25 bpm (Linda Davisbarbara, RN) Decelerations: Variable (Linda Romero, RN) Datetime: 06/28/2016 22:43 Pulse: 83 (QS system process) SpO2 (%): 100 (QS system process) Actions for Decelerations: Trendelenberg (Desiree Fanny, RN) LaborFlag: Labor (QS system process) Datetime: 06/28/2016 22:41 NBP Sys/Lucia/Mean (mmHg): 110 (QS system process) : 72 (QS system process) : 84 (QS system process) Pulse: 80 (QS system process) Actions for Decelerations: Sterile Vaginal Exam (Desiree Fanny, RN) Actions for Decelerations: Oxygen Applied (Desiree Fanny, RN) Vaginal Exam Dilatation (cm): 3.0 (Desiree Fanny, RN) Effacement (%): 50 (Desiree Fanny, RN) Station: -3 (Desiree Fanny, RN) Exam by: Lynn Romero RN (Desiree Fanny, RN) LaborFlag: Labor (QS system process) Datetime: 06/28/2016 22:40 Actions for Decelerations: Side to Side (Desiree Fanny, RN) Datetime: 06/28/2016 22:39 Medication Comments: cervidil out (Desiree Fanny, RN) Datetime: 06/28/2016 22:38 Pulse: 82 (QS system process) Pulse: 78 (QS system process) SpO2 (%): 99 (QS system process) SpO2 (%): 90 (QS system process) LaborFlag: Labor (QS system process) Datetime: 06/28/2016 22:33 Medications Antibiotics: Start Antibiotics; Penicillin IV (Units) @ [id number] (Linda Romero, JESSIKA) Datetime: 06/28/2016 22:30 Uterine Activity Monitor Mode: External; Palpation (Linda Romero RN) Frequency (min): 1-1.5 (Linda Romero RN) Quality: Moderate (Linda Romero RN) Duration (sec): 60-80 (Linda Romero RN) Resting Tone (Palpate): Relaxed (Linda Romero RN) Assessment A Monitor Mode: External US (Linda Romero, RN) FHR Baseline Rate : 150 (Linda Romero, RN) Variability: Moderate 6-25 bpm (Linda Romero, RN) Decelerations: Late; Variable (Linda Romero, RN) Patient Position/Activity: Left Lateral (Linda Romero, RN) Datetime: 06/28/2016 22:23 Communication Comments: Dr. Costa notified of positive nitrates in urine, and contraction frequency post cervidil placement. Plans to go ahead and start GBS protocol, and to give fluid bolus. If contractions continue to be to frequent then cervidil will be removed and provider notified. (Linda Romero, JESSIKA) Datetime: 06/28/2016 22:19 Pain Pain Scale: 3 (Linda Romero RN) Pain Presence: Intermittent (Linda Romero RN) Pain Type: Contraction (Linda Romero RN) Pain Location: Abdomen; Back (Linda Romero RN) Pain Relief Measures: Comfort Measures (Linda Romero RN) Pain Coping: Talking Through Contractions; Breathing Through Contractions; Declines Medication or Epidural (Linda Romero RN) LaborFlag: Labor (QS system process) Datetime: 06/28/2016 22:18 Patient Care IV/Blood Work: IV Bolus Started; IV Bolus Given ml @ 500 (Linda Romero, JESSIKA) Datetime: 06/28/2016 22:15 Bedside Blood Glucose: 85 (QS system process) Uterine Activity Monitor Mode: External; Palpation (Linda Romero RN) Frequency (min): 1.5-2 (Linda Romero RN) Quality: Mild/Moderate (Linda Romero RN) Duration (sec): 50-90 (Linda Romero RN) Resting Tone (Palpate): Relaxed (Linda Romero RN) LaborFlag: Labor (QS system process) Datetime: 06/28/2016 22:11 Monitor Interventions for FHR: Ultrasound Adjusted (Linda Kossmann, RN) Datetime: 06/28/2016 22:10 NBP Sys/Lucia/Mean (mmHg): 110 (QS system process) : 62 (QS system process) : 80 (QS system process) Pulse: 76 (QS system process) LaborFlag: Labor (QS system process) Datetime: 06/28/2016 22:00 Uterine Activity Monitor Mode: External; Palpation (Linda Kossmann, RN) Frequency (min): 4-7 (Linda Kossmann, RN) Quality: Mild (Linda Kossmann, RN) Duration (sec): 50-80 (Linda Kosann, RN) Resting Tone (Palpate): Relaxed (Linda Kossmann, RN) Assessment A Monitor Mode: External US (Linda Susanann, RN) FHR Baseline Rate : 140 (Linda Kosann, RN) Variability: Moderate 6-25 bpm (Linda Kossmann, RN) Accelerations: 15X15 (Linda Kossmann, RN) Decelerations: None (Linda Kossmann, RN) Datetime: 06/28/2016 21:46 Cervix, Consistency: Moderate (Linda Romero RN) Cervix, Position: Midposition (Linda Romero RN) Presentation 'A': Cephalic (Linda Romero RN) Ledesma's Score Dilatation (cm): Closed (Linda Romero RN) Effacement: 0-30_ effaced (Linda Romero RN) Station: minus 3 (Linda Romero RN) Consistency: Medium (Linda Romero RN) Position: Midposition (Linda Romero RN) Total Ledesma's Score: 2 (QS system process) : 0-4 = Unfavorable cervix (QS system process) Cervical Ripening Agents: Cervidil (Linda Romero RN) Medication Comments: cervidil 10mg vaginally placed in the posterior fornix per provider orders (Linda Romero RN) Datetime: 06/28/2016 21:45 NBP Sys/Lucia/Mean (mmHg): 108 (QS system process) : 67 (QS system process) : 81 (QS system process) Pulse: 78 (QS system process) LaborFlag: Labor (QS system process) Datetime: 06/28/2016 21:34 I/O Interventions: Up to BR (Linda Kossmann, RN) Datetime: 06/28/2016 21:32 Patient Care IV/Blood Work: IV Started; IV Infusing per Order; New IV Bag Hung (Linda Kossmann, RN) Datetime: 06/28/2016 21:30 Uterine Activity Monitor Mode: External; Palpation (Linda Romero, JESSIKA) Frequency (min): 4-8 (Linda Romero, RN) Quality: Mild (Linda Romero, RN) Duration (sec): 50-100 (Linda Romero, RN) Resting Tone (Palpate): Relaxed (Linda Romero, RN) Assessment A Monitor Mode: External US (Linda Kossmann, RN) FHR Baseline Rate : 140 (Linda Duránann, RN) Variability: Moderate 6-25 bpm (Linda Susansmann, RN) Accelerations: 15X15 (Linda Susansmann, RN) Decelerations: None (Linda Susansmann, RN) Datetime: 06/28/2016 21:22 Maternal Assessment Level of Consciousness: Fully Conscious (Linda Romero, RN) DTR's/Clonus: DTRs 2+; No Clonus (Linda Heather, RN) Headache: Denies (Linda Duránann, RN) Breath Sounds, Left: Clear and Equal (Linda Luis Armandoann, RN) Breath Sounds, Right: Clear and Equal (Linda Luis Armandoann, RN) Nausea/Vomiting: Denies (Linda Romero, RN) RUQ Epigastric Pain: Denies (Linda Luis Armandoann, RN) Datetime: 06/28/2016 21:20 Procedures: Bedside Ultrasound Done (Linda Romero RN) Patient Care Comments: Dr. Costa at bedsideperforming bedside ultrasound to confirm position. Vertex per ultrasound (Linda Romero RN) Datetime: 06/28/2016 21:10 NBP Sys/Lucia/Mean (mmHg): 122 (QS system process) : 74 (QS system process) : 92 (QS system process) Pulse: 81 (QS system process) Pain Pain Scale: 0 (Linda Romero RN) Pain Presence: None/Denies (Linda Romero RN) Pain Type: N/A (Linda Romero RN) LaborFlag: Labor (QS system process) Datetime: 06/28/2016 21:00 Teaching Instructional Method: Verbal; Patient Instructed (Linda Romero RN) Plan of Care: Plan of Care Discussed; Vaginal Delivery; Labor; Induction (Linda Romero RN) Unit Routine: [place] to Room; [facility] [place]; Bed; Visiting Policy; Security; Phone/Cell Phone Use; Photography; Unit Personnel; Consents Signed; Handwashing; Monitoring; IV Pumps; Safety/Fall Risk Prevention; Diet/Nutrition Services; Medications (Linda Romero RN) Labor/Induction: Labor Stages; Cervical Ripening; Induction; Antibiotic Use (Linda Romero RN) Pain Management: IV Narcotics; Epidural; Pain Scale/Goals; Comfort Measures (Linda Romero RN) Medications: Antibiotics; IV Narcotics; Cervical Ripening (Linda Romero RN) Related: Common Discomforts of ; Hydration (Linda Romero RN) Datetime: 06/28/2016 20:59 Vaginal Exam Dilatation (cm): inner os closed/ outer os thin and 2-3cm (Linda Romero RN) Effacement (%): thick (Linda Romero RN) Station: oop (Linda Romero RN) Exam by: jessika romero (Linda Romero RN)
[2016-06-29] MEDS: KETOROLAC TROMETHAMINE INJ/PF 30 MG/1 ML SDV IV SCH ×3 (07:26→21:30)
[2016-06-29] MEDS: PRENATAL VITAMIN W-O CA NO5/FE FUMARATE/FA CAPSULE PO SCH (10:18)
[2016-06-29] MEDS: DOCUSATE SODIUM 100 MG CAPSULE PO SCH ×2 (10:18→19:42)
[2016-06-29] MEDS ORDERED: CEFTRIAXONE INJ 1000 MG VIAL IV ONE (16:00)
[2016-06-29] MEDS ORDERED: RINGERS SOLUTION,LACTATED 1,000 ML IV ONE (16:45)
[2016-06-29] MEDS ORDERED: CEFTRIAXONE 1 GM/D5W RTU 1 GM/50 ML RTUPB IV ONE (17:00)
--- NOTE | 2016-06-29 18:01 | L&D Current Admission ---
Current Admit Datetime Report Generated by CPN: 06/29/2016 18:00 ADMISSION INFORMATION Current Admit Date/Time: 06/28/2016 20:15 (05/29/2016 18:41:Linda Romero RN) Reason for Admission: Induction of Labor (05/29/2016 18:41:Linda Romero RN) Chief Complaint: Scheduled Induction of Labor (05/29/2016 18:41:Linda Romero RN) Medications During : Vitamin (05/29/2016 18:41:Linda Romero RN) EGA per Dates: 40.1 (05/29/2016 18:41:QS system process) Method of Arrival: Ambulatory (05/29/2016 18:41:Linda Romero RN) Admitted From: Home (05/29/2016 18:41:Linda Romero RN) Reason for Induction: Maternal Diabetes (05/29/2016 18:41:Linda Romero RN) Records Available: Yes (05/29/2016 18:41:Linda Romero RN) General Admission Information: Reviewed (05/29/2016 18:41:Linda Romero RN) General Admission Reviewed By: JESSIKA Romero (05/29/2016 18:41:Linda Romero RN) BELONGINGS/ADVANCED DIRECTIVES Other Belongings: see valuables consent (05/29/2016 18:41:Linda Romero RN) Disposition of Belongings: Sent Home (05/29/2016 18:41:Linda Romero RN) Advance Direct for Healthcare: No, and Wants No Information (05/29/2016 18:41:Linda Romero RN) Durable Power of Physician Anesthesiologist: No (05/29/2016 18:41:Linda Romero RN) Living Will: No (05/29/2016 18:41:Linda Romero RN) Organ Donor: Yes (05/29/2016 18:41:Linda Romero RN) Pt Rights Information Given: Yes (05/29/2016 18:41:Linda Romero RN) Pt Understands Pt Rights: Yes (05/29/2016 18:41:Linda Romero RN) Patient Rights Comments: given in patient access (05/29/2016 18:41:Linda Romero RN) LEARNING ASSESSMENT Knowledge Level: Understands L_D Process; Understands Care Activities; Had Pre-Hospital Education; Understands Diagnosis (05/29/2016 18:41:Linda Romero RN) Barriers to Learning: None (05/29/2016 18:41:Linda Romero RN) Learning Readiness: Motivated (05/29/2016 18:41:Linda Romero RN) Learns Best By: 1 to 1 Instruction; Reading; Videos; Group Discussion; Demonstration (05/29/2016 18:41:Linda Romero RN) Learning Needs: Labor and Delivery Process; Pain Management; Symptoms to Report; Treatment Plan; Medication; Diagnosis; Nutrition; Equipment; Care; Community Resources (05/29/2016 18:41:Linda Romero RN) DOMESTIC VIOLANCE SCREENING Dom Viol Threatened/Hurt: No (05/29/2016 18:41:Linda Romero RN) Hx of Abuse/Neglect past 2yrs: No (05/29/2016 18:41:Linda Romero RN) Feel Unsafe Going Home: No (05/29/2016 18:41:Linda Romero RN) Addt'l Observ Indicating Abuse: No (05/29/2016 18:41:Linda Romero RN) Reason Unable to Complete Screen: N/A, Screen Completed (05/29/2016 18:41:Linda Romero RN) Considered Personal Harm/Suicide: No (05/29/2016 18:41:Linda Romero RN) NUTRITIONAL/FUNCTIONAL SCREENING Problem with Appetite >5 Days: No (05/29/2016 18:41:Linda Romero RN) Chew/Swallow Difficulties: No (05/29/2016 18:41:Linda Romero RN) Inappropriate Wt Gain/Loss: No (05/29/2016 18:41:Linda Romero RN) Presence Skin Breakdown/Ulcer: No (05/29/2016 18:41:Linda Romero RN) Special Diet: No (05/29/2016 18:41:Linda Romero RN) Pt Requests Transit Proof Machine Operator Visit: No (05/29/2016 18:41:Linda Romero RN) Hx of Any of the Following?: Diabetes (05/29/2016 18:41:Linda Romero RN) New Diagnosis of: N/A (05/29/2016 18:41:Linda Romero RN) Requires Assist w/Ambulation: No (05/29/2016 18:41:Linda Romero RN) Uses Assist Device to Ambulate: No (05/29/2016 18:41:Linda Romero RN) Pt Requires Help w/ADL's: No (05/29/2016 18:41:Linda Romero RN)
--- NOTE | 2016-06-29 18:01 | L&D General Admission ---
General Admit Datetime Report Generated by CPN: 06/29/2016 18:00 INFORMATION Patient Age: 30 (05/29/2016 18:05:QS system process) EDC: 06/27/2016 00:00 (05/29/2016 18:25:Breanna Coates RN) : 3 (05/29/2016 18:25:Breanna Coates RN) Para: 2 (05/29/2016 18:25:Breanna Coates RN) Term: 2 (05/29/2016 18:25:Linda Romero RN) : 0 (05/29/2016 18:25:Linda Romero RN) Spontaneous Abortions: 0 (05/29/2016 18:25:Linda Romero RN) Induced Abortions: 0 (05/29/2016 18:25:Linda Romero RN) Livin (05/29/2016 18:25:Breanna Coates RN) Baby, Number in Womb: 1 (05/29/2016 18:25:Linda Romero RN) CARE Primary Pack Press Operator: [facility] (05/29/2016 18:25:Breanna Coates RN) Prepregnancy Weight (lb): 182 (05/29/2016 18:25:Breanna Coates RN) Prepregnancy Weight (kg): 82.7 (05/29/2016 18:25:QS system process) Height (in): 63 (06/29/2016 11:15:QS system process) ALLERGIES Medication Allergy: No (05/29/2016 18:25:Breanna Coates RN) Medication Allergies: No Known Allergies (06/28/2016) (06/28/2016 20:25:QS system process) Latex Allergy: No Latex Allergies (05/29/2016 18:25:Breanna Coates RN) Food Allergies: denies (05/29/2016 18:25:Linda Romero RN) Environmental Allergies: denies (05/29/2016 18:25:Linda Romero RN) COMMUNICATION Primary Language: Nigerien (05/29/2016 18:25:Breanna Coates RN) Other Primary Language: [place] (05/29/2016 18:25:Linda Romero RN) Medical Tx Preferred Language: Nigerien (05/29/2016 18:25:Breanna Coates RN) Nigerien Communication Ability: Speaks Nigerien; Reads Nigerien (05/29/2016 18:25:Linda Romero RN) Communication Barrier(s): None (05/29/2016 18:25:Linda Romero RN) DEMOGRAPHICS Address: [address] [place] [id number] (06/28/2016 20:17:QS system process) Zipcode: [address] (06/28/2016 20:17:QS system process) Home (06/28/2016 20:17:QS system process) SSN: [id number] (05/29/2016 18:05:QS system process) Next of Kin Name: MARK CARBONE (05/29/2016 18:05:QS system process) Next of Kin (06/28/2016 20:17:QS system process) Next of Kin Relationship: SPO (05/29/2016 18:05:QS system process) Date of : 1985 (05/29/2016 18:05:QS system process) Marital Status: (05/29/2016 18:05:QS system process) Sex: Female (05/29/2016 18:05:QS system process) Race: (05/29/2016 18:05:QS system process) Ethnicity: Non- or (05/29/2016 18:05:QS system process) Jainism: None (05/29/2016 18:05:QS system process) DRUG AND ALCOHOL USE Alcohol: No (05/29/2016 18:25:Linda Romero RN) Cigarettes: Former Smoker. [id number] (05/29/2016 18:25:Linda Romero RN) Marijuana: No (05/29/2016 18:25:Linda Romero RN) Cocaine: No (05/29/2016 18:25:Linda Romero RN) Other Illicit Drugs: No (05/29/2016 18:25:Linda Romero RN) VACCINE HISTORY Influenza Vaccine: Yes (05/29/2016 18:25:Linda Romero RN) Influenza Date: 2015 (05/29/2016 18:25:Linda Romero RN) Pneumococcal Vaccine: No (05/29/2016 18:25:Linda Romero RN) Tetanus Vaccine: Uncertain (05/29/2016 18:25:Linda Romero RN) Tdap Vaccine: Yes (05/29/2016 18:25:Linda Romero RN) Tdap Date: 06/2016 (05/29/2016 18:25:Linda Romero RN) Hepatitis B Vaccine: Yes (05/29/2016 18:25:Linda Romero RN) Buckle Frame Shaper: [facility] (05/29/2016 18:25:Linda Romero RN) Feeding Preference: Formula (05/29/2016 18:25:Linda Romero RN) Benefit of Breast Feed Discussed: Yes (05/29/2016 18:25:Linda Romero RN) Circumcision: N/A (05/29/2016 18:25:Linda Romero RN) Classes Attended: No (05/29/2016 18:25:Linda Romero RN) Tubal Ligation: No (05/29/2016 18:25:Linda Romero RN) Tubal Authorization Signed: N/A (05/29/2016 18:25:Lnida Romero RN) Consent: N/A (05/29/2016 18:25:Linda Romero RN) Consent Signed: N/A (05/29/2016 18:25:Linda Romero RN) Pain Management Plans: Natural (05/29/2016 18:25:Linda Romero RN) Plans for Labor and Delivery: None (05/29/2016 18:25:Linda Romero RN) Support Person: Mark (05/29/2016 18:25:Linda Romero RN) Support Person Relationship: (05/29/2016 18:25:Linda Romero RN) Cultural/Spritual Practice: No (05/29/2016 18:25:Linda Romero RN) Spir/Cult Dietary Needs: No (05/29/2016 18:25:Linda Romero RN) LIVING SITUATION/DISCHARGE PLAN Living Arrangements: House (05/29/2016 18:25:Linda Romero RN) Adequate Access to:: Electric; Heat; Refrigeration; Plumbing/Running water; Phone; Transportation (05/29/2016 18:25:Linda Romero RN) WIC Program: Yes (05/29/2016 18:25:Linda Romero RN) Discharge Change Release Manager Person: Mark (05/29/2016 18:25:Linda Romero RN) Person to Help after Discharge: Mark (05/29/2016 18:25:Linda Romero RN) Currently Using Commun Resources: Yes (05/29/2016 18:25:Linda Romero RN) Specify Current Resource Used: medicaid (05/29/2016 18:25:Linda Romero RN) Outside Agency/Juke Box Servicer: Yes (05/29/2016 18:25:Linda Romero RN) Specify Agency/ Juke Box Servicer: doesnt remember but states it was just for the medicaid (05/29/2016 18:25:Linda Romero RN) Car Seat for Discharge: Yes (05/29/2016 18:25:Linda Romero RN) Adoption Requested: No (05/29/2016 18:25:Linda Romero RN) Pt Contact w/infant Post : N/A (05/29/2016 18:25:Linda Romero RN) LABS Blood Type: A Positive (05/29/2016 18:25:Linda Romero RN) Antibody Screen: negative (05/29/2016 18:25:Char Greenfield RN) Hemoglobin: 13.0 (06/28/2016 20:35:QS system process) Hematocrit: 40.0 (06/28/2016 20:35:QS system process) MCV: 86 (06/28/2016 20:35:QS system process) Group Beta Strep: positive (05/29/2016 18:25:Linda Romero RN) Gonorrhea: Negative (05/29/2016 18:25:Linda Romero RN) Chlamydia: Negative (05/29/2016 18:25:Linda Romero RN) RPR/VDRL: Nonreactive (05/29/2016 18:25:Breanna Coates RN) HIV Results: negative (Annotations: Data stored by CPN on behalf of user) (05/29/2016 18:25:Linda Romero RN) Rubella: Immune (05/29/2016 18:25:Char Greenfield RN) OB/PREVIOUS HISTORY Previous Procedures: Ultrasound; NST (05/29/2016 18:25:Linda Romero RN) Current Procedures: Ultrasound; NST (05/29/2016 18:25:Linda Romero RN) History of Previous : No (05/29/2016 18:25:Linda Romero RN) History of Gestational Diabetes: Yes (05/29/2016 18:25:Linda Romero RN) History of PIH: No (05/29/2016 18:25:Linda Romero RN) History of Incompetent Cervix: No (05/29/2016 18:25:Linda Romero RN) History of Placenta Previa/Abrup: No (05/29/2016 18:25:Linda Romero RN) History of Macrosomia: No (05/29/2016 18:25:Linda Romero RN) History of IUGR: No (05/29/2016 18:25:Linda Romero RN) History of Hemorrhage: No (05/29/2016 18:25:Linda Romero RN) History of Loss/Stillborn: No (05/29/2016 18:25:Linda Romero RN) History of : No (05/29/2016 18:25:Linda Romero RN) History of D (Rh) Sensitization: No (05/29/2016 18:25:Linda Romero RN) History Recurrent Loss/Stillborn: No (05/29/2016 18:25:Linda Romero RN) History Depression/PP Depression: No (05/29/2016 18:25:Linda Romero RN) History of Uterine Anomaly/CHRISTOPHER: No (05/29/2016 18:25:Linda Romero RN) History of Infertility: No (05/29/2016 18:25:Linda Romero RN) History of ART Treatment: No (05/29/2016 18:25:Linda Romero RN) History of CHRISTOPHER: No (05/29/2016 18:25:Linda Romero RN) Comments Obstetrical History: G1:04/2012: 41 weeks G2:01/2014: 39.2 weeks G3: current , GDM, diet controlled (05/29/2016 18:25:Linda Romero RN) MEDICAL HISTORY Med Hx Diabetes: Yes (05/29/2016 18:25:Linda Romero RN) Diabetes Type: Gestational Diabetes (05/29/2016 18:25:Linda Romero RN) Med Hx Hypertension: No (05/29/2016 18:25:Linda Romero RN) Med Hx Heart Disease: No (05/29/2016 18:25:Linda Romero RN) Med Hx Autoimmune Disorder: No (05/29/2016 18:25:Linda Romero RN) Med Hx Kidney Disease/UTI: No (05/29/2016 18:25:Linda Romero RN) Med Hx Neurologic/Epilepsy: No (05/29/2016 18:25:Linda Romero RN) Med Hx Psychiatric Disorders: No (05/29/2016 18:25:Linda Romero RN) Med Hx Hepatitis/Liver Disease: No (05/29/2016 18:25:Linda Romero RN) Med Hx Varicosities/Phlebitis: No (05/29/2016 18:25:Linda Romero RN) Med Hx Thyroid Dysfunction: No (05/29/2016 18:25:Linda Romero RN) Med Hx Trauma/Violence: No (05/29/2016 18:25:Linda Romero RN) Med Hx Blood Transfusion: No (05/29/2016 18:25:Linda oRmero RN) Med Hx Pulmonary (Asthma,TB): No (05/29/2016 18:25:Linda Romero RN) Med Hx Breast: No (05/29/2016 18:25:Linda Romero RN) Med Hx COMPLIANCE SPECIALIST Surgery: No (05/29/2016 18:25:Linda Romero RN) Med Hx Hospitalization/Surgery: Yes (05/29/2016 18:25:Linda Romero RN) Med Hx Anesthetic Complications: No (05/29/2016 18:25:Linda Romero RN) Med Hx Abnormal Pap Smear: No (05/29/2016 18:25:Linda Romero RN) Other Medical Diseases: No (05/29/2016 18:25:Linda Romero RN) Med Hx Significant Family Hx: No (05/29/2016 18:25:Linda Romero RN) Details of Med/Surg Hx: x 2 (05/29/2016 18:25:Linda Romero RN) INFECTIOUS HISTORY Inf Hx Gonorrhea: No (05/29/2016 18:25:Linda Romero RN) Inf Hx Chlamydia: No (05/29/2016 18:25:Linda Romero RN) Inf Hx Syphilis: No (05/29/2016 18:25:Linda Romero RN) Inf Hx HIV/AIDS: No (05/29/2016 18:25:Linda Romero RN) Inf Hx Human Papilloma Virus: No (05/29/2016 18:25:Linda Romero RN) Inf Hx Pt/Partner Genital Herpes: No (05/29/2016 18:25:Linda Romero RN) Inf Hx Tuberculosis/Exposure: No (05/29/2016 18:25:Linda Romero RN) Inf Hx Hepatitis B,C: No (05/29/2016 18:25:iLnda Romero RN) Inf Hx Rash or Viral Illness: No (05/29/2016 18:25:Linda Romero RN) GENETIC HISTORY Gen Hx Age >=35 at SAIMA: No (05/29/2016 18:25:Linda Romero RN) Gen Hx Thalassemia: No (05/29/2016 18:25:Linda Romero RN) Gen Hx Congenital Heart Defect: No (05/29/2016 18:25:Linda Romero RN) Gen Hx Neural Tube Defect: No (05/29/2016 18:25:Linda Romero RN) Gen Hx Down's Syndrome: No (05/29/2016 18:25:Linda Romero RN) Gen Hx Jorje-Sachs: No (05/29/2016 18:25:Linda Romero RN) Gen Hx Emelia: No (05/29/2016 18:25:Linda Romero RN) Gen Hx Familial Dysautonomia: No (05/29/2016 18:25:Linda Romero RN) Gen Hx Sickle Cell Disease/Trait: No (05/29/2016 18:25:Linda Romero RN) Gen Hx Hemophilia/Blood Disorder: No (05/29/2016 18:25:Linda Romero RN) Gen Hx Muscular Dystrophy: No (05/29/2016 18:25:Linda Romero RN) Gen Hx Cystic Fibrosis: No (05/29/2016 18:25:Linda Romero RN) Gen Hx Huntingtons Chorea: No (05/29/2016 18:25:Linda Romero RN) Gen Hx Mental Retardation/Autism: No (05/29/2016 18:25:Linda Romero RN) Gen Hx Tested for Fragile X: No (05/29/2016 18:25:Linda Romero RN) Gen Hx Other Inher/Chromosomal: No (05/29/2016 18:25:Linda Romero RN) Gen Hx Maternal Metabolic DO: No (05/29/2016 18:25:Linda Romero RN) Gen Hx Pt Father or FOB Defect: No (05/29/2016 18:25:Linda Romero RN) Gen Hx Other Genetic History: No (05/29/2016 18:25:Linda Romero RN) Gen Hx Drugs/Meds since LMP: Yes (05/29/2016 18:25:Linda Romero RN) Gen Hx Medications: vitamins (05/29/2016 18:25:Linda Romero RN)
--- NOTE | 2016-06-29 18:15 | L&D Flow Sheet ---
LD Flowsheet Datetime Report Generated by CPN: 06/29/2016 18:15 Datetime: 06/29/2016 06:16 NBP Sys/Lucia/Mean (mmHg): 98 (QS system process) : 51 (QS system process) : 69 (QS system process) Pulse: 86 (QS system process) Datetime: 06/29/2016 06:15 Pulse: 95 (QS system process) Pulse: 93 (QS system process) SpO2 (%): 100 (QS system process) SpO2 (%): 94 (QS system process)
[2016-06-29] MEDS ORDERED: NITROFURANTOIN MONOHYD/M-CRYST 100 MG CAPSULE PO SCH (22:00)
[2016-06-30] MEDS: NITROFURANTOIN MONOHYD/M-CRYST 100 MG CAPSULE PO SCH ×2 (05:10→18:25)
[2016-06-30] MEDS: IBUPROFEN 800 MG TABLET PO SCH ×4 (05:10→23:57)
--- NOTE | 2016-06-30 06:01 | L&D Current Admission ---
Current Admit Datetime Report Generated by CPN: 06/30/2016 06:00 ADMISSION INFORMATION Current Admit Date/Time: 06/28/2016 20:15 (05/29/2016 18:41:Linda Romero RN) Reason for Admission: Induction of Labor (05/29/2016 18:41:Linda Romero RN) Chief Complaint: Scheduled Induction of Labor (05/29/2016 18:41:Linda Romero RN) Medications During : Vitamin (05/29/2016 18:41:Linda Romero RN) EGA per Dates: 40.1 (05/29/2016 18:41:QS system process) Method of Arrival: Ambulatory (05/29/2016 18:41:Linda Romero RN) Admitted From: Home (05/29/2016 18:41:Linda Romero RN) Reason for Induction: Maternal Diabetes (05/29/2016 18:41:Linda Romero RN) Records Available: Yes (05/29/2016 18:41:Linda Romero RN) General Admission Information: Reviewed (05/29/2016 18:41:Linda Romero RN) General Admission Reviewed By: JESSIKA Romero (05/29/2016 18:41:Linda Romero RN) BELONGINGS/ADVANCED DIRECTIVES Other Belongings: see valuables consent (05/29/2016 18:41:Linda Romero RN) Disposition of Belongings: Sent Home (05/29/2016 18:41:Linda Romero RN) Advance Direct for Healthcare: No, and Wants No Information (05/29/2016 18:41:Linda Romero RN) Durable Power of [place] Clerk: No (05/29/2016 18:41:Linda Romero RN) Living Will: No (05/29/2016 18:41:Linda Romero RN) Organ Donor: Yes (05/29/2016 18:41:Linda Romero RN) Pt Rights Information Given: Yes (05/29/2016 18:41:Linda Romero RN) Pt Understands Pt Rights: Yes (05/29/2016 18:41:Linda Romero RN) Patient Rights Comments: given in patient access (05/29/2016 18:41:Linda Romero RN) LEARNING ASSESSMENT Knowledge Level: Understands L_D Process; Understands Care Activities; Had Pre-Hospital Education; Understands Diagnosis (05/29/2016 18:41:Linda Romero RN) Barriers to Learning: None (05/29/2016 18:41:Linda Romero RN) Learning Readiness: Motivated (05/29/2016 18:41:Linda Romero RN) Learns Best By: 1 to 1 Instruction; Reading; Videos; Group Discussion; Demonstration (05/29/2016 18:41:Linda Romero RN) Learning Needs: Labor and Delivery Process; Pain Management; Symptoms to Report; Treatment Plan; Medication; Diagnosis; Nutrition; Equipment; Care; Community Resources (05/29/2016 18:41:Lidna Romero RN) DOMESTIC VIOLANCE SCREENING Dom Viol Threatened/Hurt: No (05/29/2016 18:41:Linda Romero RN) Hx of Abuse/Neglect past 2yrs: No (05/29/2016 18:41:Linda Romero RN) Feel Unsafe Going Home: No (05/29/2016 18:41:Linda Romero RN) Addt'l Observ Indicating Abuse: No (05/29/2016 18:41:Linda Romero RN) Reason Unable to Complete Screen: N/A, Screen Completed (05/29/2016 18:41:Linda Romero RN) Considered Personal Harm/Suicide: No (05/29/2016 18:41:Linda Romero RN) NUTRITIONAL/FUNCTIONAL SCREENING Problem with Appetite >5 Days: No (05/29/2016 18:41:Linda Romero RN) Chew/Swallow Difficulties: No (05/29/2016 18:41:Linda Romero RN) Inappropriate Wt Gain/Loss: No (05/29/2016 18:41:Linda Romero RN) Presence Skin Breakdown/Ulcer: No (05/29/2016 18:41:Linda Romero RN) Special Diet: No (05/29/2016 18:41:Linda Romero RN) Pt Requests Bread Room Hand Visit: No (05/29/2016 18:41:Linda Romero RN) Hx of Any of the Following?: Diabetes (05/29/2016 18:41:Linda Romero RN) New Diagnosis of: N/A (05/29/2016 18:41:Linda Romero RN) Requires Assist w/Ambulation: No (05/29/2016 18:41:Linda Romero RN) Uses Assist Device to Ambulate: No (05/29/2016 18:41:Linda Romero RN) Pt Requires Help w/ADL's: No (05/29/2016 18:41:Linda Romero RN)
--- NOTE | 2016-06-30 06:01 | L&D General Admission ---
General Admit Datetime Report Generated by CPN: 06/30/2016 06:00 INFORMATION Patient Age: 30 (05/29/2016 18:05:QS system process) EDC: 06/27/2016 00:00 (05/29/2016 18:25:Breanna Coates RN) : 3 (05/29/2016 18:25:Breanna Coates RN) Para: 2 (05/29/2016 18:25:Breanna Coates RN) Term: 2 (05/29/2016 18:25:Linda Romero RN) : 0 (05/29/2016 18:25:Linda Romero RN) Spontaneous Abortions: 0 (05/29/2016 18:25:Linda Romero RN) Induced Abortions: 0 (05/29/2016 18:25:Linda Romero RN) Livin (05/29/2016 18:25:Breanna Coates RN) Baby, Number in Womb: 1 (05/29/2016 18:25:Linda Romero RN) CARE Primary Comber Setter: [email or web address] (05/29/2016 18:25:Breanna Coates RN) Prepregnancy Weight (lb): 182 (05/29/2016 18:25:Breanna Coates RN) Prepregnancy Weight (kg): 82.7 (05/29/2016 18:25:QS system process) Height (in): 63 (06/29/2016 11:15:QS system process) ALLERGIES Medication Allergy: No (05/29/2016 18:25:Breanna Coates RN) Medication Allergies: No Known Allergies (06/28/2016) (06/28/2016 20:25:QS system process) Latex Allergy: No Latex Allergies (05/29/2016 18:25:Breanna Coates RN) Food Allergies: denies (05/29/2016 18:25:Linda Romero RN) Environmental Allergies: denies (05/29/2016 18:25:Linda Romero RN) COMMUNICATION Primary Language: Gibraltarian (05/29/2016 18:25:Breanna Coates RN) Other Primary Language: [place] (05/29/2016 18:25:Linda Romero RN) Medical Tx Preferred Language: Gibraltarian (05/29/2016 18:25:Breanna Coates RN) Gibraltarian Communication Ability: Speaks Gibraltarian; Reads Gibraltarian (05/29/2016 18:25:Linda Romero RN) Communication Barrier(s): None (05/29/2016 18:25:Linda Romero RN) DEMOGRAPHICS Address: [address] [place] [id number] (06/28/2016 20:17:QS system process) Zipcode: [address] (06/28/2016 20:17:QS system process) Home (06/28/2016 20:17:QS system process) SSN: [id number] (05/29/2016 18:05:QS system process) Next of Kin Name: MARK CARBONE (05/29/2016 18:05:QS system process) Next of Kin (06/28/2016 20:17:QS system process) Next of Kin Relationship: SPO (05/29/2016 18:05:QS system process) Date of : 1985 (05/29/2016 18:05:QS system process) Marital Status: (05/29/2016 18:05:QS system process) Sex: Female (05/29/2016 18:05:QS system process) Race: (05/29/2016 18:05:QS system process) Ethnicity: Non- or (05/29/2016 18:05:QS system process) Anabaptism: None (05/29/2016 18:05:QS system process) DRUG AND ALCOHOL USE Alcohol: No (05/29/2016 18:25:Linda Romero RN) Cigarettes: Former Smoker. [id number] (05/29/2016 18:25:Linda Romero RN) Marijuana: No (05/29/2016 18:25:Linda Romero RN) Cocaine: No (05/29/2016 18:25:Linda Romero RN) Other Illicit Drugs: No (05/29/2016 18:25:Linda Romero RN) VACCINE HISTORY Influenza Vaccine: Yes (05/29/2016 18:25:Linda Romero RN) Influenza Date: 2015 (05/29/2016 18:25:Linda Romero RN) Pneumococcal Vaccine: No (05/29/2016 18:25:Linda Romero RN) Tetanus Vaccine: Uncertain (05/29/2016 18:25:Linda Romero RN) Tdap Vaccine: Yes (05/29/2016 18:25:Linda Romero RN) Tdap Date: 06/2016 (05/29/2016 18:25:Linda Romero RN) Hepatitis B Vaccine: Yes (05/29/2016 18:25:Linda Romero RN) Rodding Anode Worker: [facility] (05/29/2016 18:25:Linda Romero RN) Feeding Preference: Formula (05/29/2016 18:25:Linda Romero RN) Benefit of Breast Feed Discussed: Yes (05/29/2016 18:25:Linda Romero RN) Circumcision: N/A (05/29/2016 18:25:Linda Romero RN) Classes Attended: No (05/29/2016 18:25:Linda Romero RN) Tubal Ligation: No (05/29/2016 18:25:Linda Romero RN) Tubal Authorization Signed: N/A (05/29/2016 18:25:Linda Romero RN) Consent: N/A (05/29/2016 18:25:Linda Romero RN) Consent Signed: N/A (05/29/2016 18:25:Linda Romero RN) Pain Management Plans: Natural (05/29/2016 18:25:Linda Romero RN) Plans for Labor and Delivery: None (05/29/2016 18:25:Linda Romero RN) Support Person: Mark (05/29/2016 18:25:Linda Romero RN) Support Person Relationship: (05/29/2016 18:25:Linda Romero RN) Cultural/Spritual Practice: No (05/29/2016 18:25:Linda Romero RN) Spir/Cult Dietary Needs: No (05/29/2016 18:25:Linda Romero RN) LIVING SITUATION/DISCHARGE PLAN Living Arrangements: House (05/29/2016 18:25:Linda Romero RN) Adequate Access to:: Electric; Heat; Refrigeration; Plumbing/Running water; Phone; Transportation (05/29/2016 18:25:Linda Romero RN) WIC Program: Yes (05/29/2016 18:25:Linda Romero RN) Discharge Educational Coordinator Person: Mark (05/29/2016 18:25:Linda Romero RN) Person to Help after Discharge: Mark (05/29/2016 18:25:Linda Romero RN) Currently Using Commun Resources: Yes (05/29/2016 18:25:Linda Romero RN) Specify Current Resource Used: medicaid (05/29/2016 18:25:Linda Romero RN) Outside Agency/Interlocker Maintainer: Yes (05/29/2016 18:25:Linda Romero RN) Specify Agency/ Interlocker Maintainer: doesnt remember but states it was just for the medicaid (05/29/2016 18:25:Linda Romero RN) Car Seat for Discharge: Yes (05/29/2016 18:25:Linda Romero RN) Adoption Requested: No (05/29/2016 18:25:Linda Romero RN) Pt Contact w/infant Post : N/A (05/29/2016 18:25:Linda Romero RN) LABS Blood Type: A Positive (05/29/2016 18:25:Linda Romero RN) Antibody Screen: negative (05/29/2016 18:25:Char Greenfield RN) Hemoglobin: 13.0 (06/28/2016 20:35:QS system process) Hematocrit: 40.0 (06/28/2016 20:35:QS system process) MCV: 86 (06/28/2016 20:35:QS system process) Group Beta Strep: positive (05/29/2016 18:25:Linda Romero RN) Gonorrhea: Negative (05/29/2016 18:25:Linda Romero RN) Chlamydia: Negative (05/29/2016 18:25:Linda Romero RN) RPR/VDRL: Nonreactive (05/29/2016 18:25:Breanna Coates RN) HIV Results: negative (Annotations: Data stored by CPN on behalf of user) (05/29/2016 18:25:Linda Romero RN) Rubella: Immune (05/29/2016 18:25:Char Greenfield RN) OB/PREVIOUS HISTORY Previous Procedures: Ultrasound; NST (05/29/2016 18:25:Linda Romero RN) Current Procedures: Ultrasound; NST (05/29/2016 18:25:Linda Romero RN) History of Previous : No (05/29/2016 18:25:Linda Romero RN) History of Gestational Diabetes: Yes (05/29/2016 18:25:Linda Romero RN) History of PIH: No (05/29/2016 18:25:Linda Romero RN) History of Incompetent Cervix: No (05/29/2016 18:25:Lnida Romero RN) History of Placenta Previa/Abrup: No (05/29/2016 18:25:Linda Rmoero RN) History of Macrosomia: No (05/29/2016 18:25:Linda Romero RN) History of IUGR: No (05/29/2016 18:25:Linda Romero RN) History of Hemorrhage: No (05/29/2016 18:25:Linda Romero RN) History of Loss/Stillborn: No (05/29/2016 18:25:Linda Romero RN) History of : No (05/29/2016 18:25:Linda Romero RN) History of D (Rh) Sensitization: No (05/29/2016 18:25:Linda Romero RN) History Recurrent Loss/Stillborn: No (05/29/2016 18:25:Linda Romero RN) History Depression/PP Depression: No (05/29/2016 18:25:Linda Romero RN) History of Uterine Anomaly/CHRISTOPHER: No (05/29/2016 18:25:Linda Romero RN) History of Infertility: No (05/29/2016 18:25:Linda Romero RN) History of ART Treatment: No (05/29/2016 18:25:Linda Romero RN) History of CHRISTOPHER: No (05/29/2016 18:25:Linda Romero RN) Comments Obstetrical History: G1:04/2012: 41 weeks G2:01/2014: 39.2 weeks G3: current , GDM, diet controlled (05/29/2016 18:25:Linda Romero RN) MEDICAL HISTORY Med Hx Diabetes: Yes (05/29/2016 18:25:Linda Romero RN) Diabetes Type: Gestational Diabetes (05/29/2016 18:25:Linda Romero RN) Med Hx Hypertension: No (05/29/2016 18:25:Linda Romero RN) Med Hx Heart Disease: No (05/29/2016 18:25:Linda Romero RN) Med Hx Autoimmune Disorder: No (05/29/2016 18:25:Linda Romero RN) Med Hx Kidney Disease/UTI: No (05/29/2016 18:25:Linda Romero RN) Med Hx Neurologic/Epilepsy: No (05/29/2016 18:25:Linda Romero RN) Med Hx Psychiatric Disorders: No (05/29/2016 18:25:Linda Romero RN) Med Hx Hepatitis/Liver Disease: No (05/29/2016 18:25:Linda Romero RN) Med Hx Varicosities/Phlebitis: No (05/29/2016 18:25:Linda Romero RN) Med Hx Thyroid Dysfunction: No (05/29/2016 18:25:Linda Romero RN) Med Hx Trauma/Violence: No (05/29/2016 18:25:Linda Romero RN) Med Hx Blood Transfusion: No (05/29/2016 18:25:Lidna Romero RN) Med Hx Pulmonary (Asthma,TB): No (05/29/2016 18:25:Linda Romero RN) Med Hx Breast: No (05/29/2016 18:25:Linda Romero RN) Med Hx BOILER TESTING TECHNICIAN Surgery: No (05/29/2016 18:25:Linda Romero RN) Med Hx Hospitalization/Surgery: Yes (05/29/2016 18:25:Linda Romero RN) Med Hx Anesthetic Complications: No (05/29/2016 18:25:Linda Romero RN) Med Hx Abnormal Pap Smear: No (05/29/2016 18:25:Linda Romero RN) Other Medical Diseases: No (05/29/2016 18:25:Linda Romero RN) Med Hx Significant Family Hx: No (05/29/2016 18:25:Linda Romero RN) Details of Med/Surg Hx: x 2 (05/29/2016 18:25:Linda Romero RN) INFECTIOUS HISTORY Inf Hx Gonorrhea: No (05/29/2016 18:25:Linda Romero RN) Inf Hx Chlamydia: No (05/29/2016 18:25:Linda Romero RN) Inf Hx Syphilis: No (05/29/2016 18:25:Linda Romero RN) Inf Hx HIV/AIDS: No (05/29/2016 18:25:Linda Romero RN) Inf Hx Human Papilloma Virus: No (05/29/2016 18:25:Linda Romero RN) Inf Hx Pt/Partner Genital Herpes: No (05/29/2016 18:25:Linda Romero RN) Inf Hx Tuberculosis/Exposure: No (05/29/2016 18:25:Linda Romero RN) Inf Hx Hepatitis B,C: No (05/29/2016 18:25:Linda Romero RN) Inf Hx Rash or Viral Illness: No (05/29/2016 18:25:Linda Romero RN) GENETIC HISTORY Gen Hx Age >=35 at SAIMA: No (05/29/2016 18:25:Linda Romero RN) Gen Hx Thalassemia: No (05/29/2016 18:25:Linda Romero RN) Gen Hx Congenital Heart Defect: No (05/29/2016 18:25:Linda Romero RN) Gen Hx Neural Tube Defect: No (05/29/2016 18:25:Linda Romero RN) Gen Hx Down's Syndrome: No (05/29/2016 18:25:Linda Romero RN) Gen Hx Jorje-Sachs: No (05/29/2016 18:25:Linda Romero RN) Gen Hx Emelia: No (05/29/2016 18:25:Linda Romero RN) Gen Hx Familial Dysautonomia: No (05/29/2016 18:25:Linda Romero RN) Gen Hx Sickle Cell Disease/Trait: No (05/29/2016 18:25:Linda Romero RN) Gen Hx Hemophilia/Blood Disorder: No (05/29/2016 18:25:Linda Romero RN) Gen Hx Muscular Dystrophy: No (05/29/2016 18:25:Linda Romero RN) Gen Hx Cystic Fibrosis: No (05/29/2016 18:25:Linda Romero RN) Gen Hx Huntingtons Chorea: No (05/29/2016 18:25:Linda Romero RN) Gen Hx Mental Retardation/Autism: No (05/29/2016 18:25:Linda Romero RN) Gen Hx Tested for Fragile X: No (05/29/2016 18:25:Linda Romero RN) Gen Hx Other Inher/Chromosomal: No (05/29/2016 18:25:Linda Romero RN) Gen Hx Maternal Metabolic DO: No (05/29/2016 18:25:Linda Romero RN) Gen Hx Pt Father or FOB Defect: No (05/29/2016 18:25:Linda Romero RN) Gen Hx Other Genetic History: No (05/29/2016 18:25:Linda Romero RN) Gen Hx Drugs/Meds since LMP: Yes (05/29/2016 18:25:Linda Romero RN) Gen Hx Medications: vitamins (05/29/2016 18:25:Linda Romero RN)
--- NOTE | 2016-06-30 06:16 | L&D Care Plan ---
LD CARE PLANS Datetime Report Generated by CPN: 06/30/2016 06:15 Datetime: 06/28/2016 20:28 Pain State: Risk For (Linda Romero RN) Related To: Labor and Delivery Process; Surgical Procedure; Complication(s) of ; Treatment and Procedures; Post (Linda Romero RN) Goal(s): Patients Pain will be Assessed and Managed; Patient will Verbalize Adequate Relief of Pain or the Ability to [place] with Current Pain (Linda Romero RN) Interventions: Assess Pain Severity on Scale of 0 (None) to 5 (Severe); Assess Type, Location and Intensity of Pain Each Time Client Reports Discomfort and Notify Provider if Unusal Pain Develops; Encourage Proper Breathing and Relaxation Techniques; Offer Alternatives Such as Repositioning, Calm Environment, Massages, Diversional Activities, Ice Pack, Splinting, and Ambulation; Administer Analgesics as Ordered; Assist with Epidural Placement as Appropriate; Evaluate Therapeutic Effectiveness of Medication and Treatments (Linda Romero RN) Outcome: Patient will Report Absence or Relief of Pain Consistent with Established Pain Goal (Linda Romero RN) Status: Ongoing (Linda Romero RN) Outcome: Patient will have a Decrease in Signs and Symptoms of Discomfort (Linda Romero RN) Status: Ongoing (Linda Romero RN) Outcome: Pain will be Controlled During Procedures (Linda Romero RN) Status: Ongoing (Linda Romero RN) Anxiety State: Risk For (Linda Romero RN) Related To: Labor and Delivery Process; Surgical Procedure; Fear of Unknown; Medical Interventions (Linda Romero RN) Goal(s): Patient will have Decreased Anxiety and be able to Function at Acceptable Levels (Linda Roemro RN) Interventions: Assess Verbal and Nonverbal Behavioral Indicators of Anxiety; Assist Patient to Identify and Verbalize Symptoms of Anxiety; Identify and Demonstrate Techniques to Control Anxiety; Assist Patient with Coping Mechanisms to Manage Anxiety; Provide Theraputic Touch for the Patient; Explain to Patient, Using a Calm Reassuring Approach and Nonmedical Terms, All Activities, Procedures, and Concerns; Instruct Patient and Family about Post Discharge Care, Limitations, Symptoms to Report and Resources Available (Linda Romero RN) Outcome: Patient will Identify, Verbalize and Demonstrate Techniques to Control Anxiety (Linda Romero RN) Status: Ongoing (Linda Romero RN) Outcome: Patient's Posture, Facial Expressions, Gestures and Activity Level will Reflect Decreased Anxiety (Linda Romero RN) Status: Ongoing (Linda Romero RN) Outcome: Patient will Verbalize a Sense of Control and/or Acceptance of the Situation (Lnida Romero RN) Status: Ongoing (Linda Romero RN) Outcome: Patient will Identify and Utilize Support Person (Linda Romero RN) Status: Ongoing (Linda Romero RN) Knowledge Deficit State: Risk For (Linda Romero RN) Related To: Labor and Delivery Process; Surgical Procedures; Treatment and Procedures; Feeding and Infant Care (Linda Romero RN) Goal(s): Patient will Accurately Verbalize Understanding of Plan of Care and Treatment; Patient and Family will Accurately Verbalize Understanding of the Disease Process (Linda Romero RN) Interventions: Assess Motivation and Willingness of Patient/Family to Learn; Assess Preferred Learning Mode: One to One Instruction, Reading, Videos, Group Discussion or Demonstration; Assess Barriers to Learning: Pain, Emotional State, Language Barrier, Cognitive Impairment, Visual or Hearing Deficits; Assess Patient and Family Knowledge of Disease Process, Medications and Treatment; Discuss Therapy and/or Treatment Options, Describe Rationale Behind Management, Therapy and Treatment Recommendations; Instruct Patient and Family on Signs and Symptoms to Report; Instruct Patient and Family on Medication Effects and Side Effects; Provide Appropriate and Timely Education Using Multiple Techniques; Provide Patient and Family with Support Group Information and Resources; Give Clear and Thorough Explanations and Demonstrations (Linda Romero RN) Outcome: Patient and Family will Verbalize Understanding of Condition, Treatment and Signs and Symptoms to Report (Linda Romero RN) Status: Ongoing (Linda Romero RN) Outcome: Patient will Identify Perceived Learning Needs and Express Motivation to Learn (Linda Romero RN) Status: Ongoing (Linda Romero RN) Outcome: Patient will Verbalize Understanding of Desired Content, and/or Performs Desired Skill Prior to Discharge (Linda Romero RN) Status: Ongoing (Linda Romero RN) Infection State: Risk For (Linda Romero RN) Related To: Surgical Procedures; Prolonged Labor or Induction; Premature/Prolonged Rupture of Membranes; Invasive Procedures (Linda Romero RN) Goal(s): The Patient will be Free of Infection, Vital Signs Stable and Lab Work within Normal Parameters (Linda Romero RN) Interventions: Instruct and Reinforce Proper Handwashing, Hygiene, and Care Techniques to Patient and Family; Monitor Vital Signs; Monitor Patient for the Following Signs of Infection: Fever, Abdominal Tenderness, Unusual Discharge; Monitor Aminiotic Fluid, Urine and Lochia for Color and Odor; Observe Wounds, Incisions and Invasive Line Sites for Redness, Drainage and Edema; Assess IV Sites per Hospital Policy; Monitor Lab and Test Results and Notify Provider of Abnormal Findings; Assess Nutritional Status and Promote Good Nutrition (Linda Romero RN) Outcome: Patient will Remain Free of Infection (Linda Romero RN) Status: Ongoing (Linda Romero RN) Outcome: Infection will be Recognized Early to Allow for Prompt Treatment (Linda Romero RN) Status: Ongoing (Linda Romero RN) Outcome: Patient will have Vital Signs Within Expected Range (Linda Romero RN) Status: Ongoing (Linda Romero RN) Fluid Volume State: Risk For (Linda Romero RN) Related To: Surgical Procedures; Prolonged Labor or Induction; Hemorrhage; Disease Process; Anesthesia (Linda Romero RN) Goal(s): Patient will Achieve and Maintain a Balanced Fluid Volume Status; Hemodynamically Stable (Linda Romero RN) Interventions: Monitor Vital Signs; Auscultate Breath Sounds; Monitor Patient for Skin Turgor, Mucous Membranes, Dry Skin, Weakness, Headaches and Confusion; Provide Oral Fluids as Ordered; Initiate and Maintain Intravenous Fluids as Ordered; Monitor Intake and Output as Indicated Per Patient Status; Accurately Measure Blood Loss; Monitor Lab and Test Results as Obtained and Notify Provider of Abnormal Findings; Monitor Patient's Weight (Linda Romero RN) Outcome: Patient will have Clear Lung Sounds (Linda Romero RN) Status: Ongoing (Linda Romero RN) Outcome: Patient will have Vital Signs within Expected Range (Linda Romero RN) Status: Ongoing (Linda Romero RN) Outcome: Urine Output will be within Expected Range (Linda Romero RN) Status: Ongoing (Linda Romero RN) Outcome: Patient will have Minimal Generalized or Upper Extremity Edema (Linda Romero RN) Status: Ongoing (Linda Rmoero RN) Injury State: Risk For (Linda Romero RN) Related To: Labor and Delivery Process; Anesthesia; Risk to Status; Uteroplacental Perfusion; Hemorrhage, Placenta Previa and or Placental Abruption (Linda Romero RN) Goal(s): Patient will Remain Free from Injury (Linda Romero RN) Interventions: Monitoring as per Hospital Protocol; Assess Neurological Status; Perform Risk Assessment of Patients with Induction and ; Perform Fall Risk Assessment and Prevention per Hospital Protocol; Perform DVT Risk Assessment and Prophylaxis per Hospital Protocol; Ensure that Oxygen, Suction, and Resuscitation Medications and Equipment are Readily Available; Confirm Patient ID Prior to Procedure(s) and Medication Administration per Hospital Policy (Linda Romero RN) Outcome: Successful Fall Risk Prevention (Linda Romero RN) Status: Ongoing (Linda Romero RN) Outcome: Patient will Deliver Infant without Adverse [place]ela (Linda Romero RN) Status: Ongoing (Linda Romero RN) Outcome: Patient's Neurological Status will Remain Stable (Linda Romero RN) Status: Ongoing (Linda Romero RN) Impaired Skin Integrity State: Risk For (Linda Romero RN) Related To: Vaginal Delivery; Surgical Procedures; Invasive Procedures (Linda Romero RN) Goal(s): Patient will Maintain Optimal Skin Integrity, Free of Breakdown, Injury or Infection (Linda Romero RN) Interventions: Complete Screening for Pressure Ulcer Risk and Initiate Protocol per Hospital Policy; Monitor Site of Skin Impairment for Color Changes, Redness, Swelling, Warmth, Pain or Other Signs of Infection; Encourage and Assist with Position Changes; Monitor Patient's Mobility Status; Provide Adequate Nutrition and Fluids; Teach Patient Appropriate Hygienic Care; Teach Patient/Family Skin Care Management (Linda Romero RN) Outcome: Patient will not have Evidence of Injury Such as Skin Breakdown, Scrapes, Cuts, or Bruising (Linda Romero RN) Status: Ongoing (Linda Romero RN) Outcome: Patient will Report Any Altered Sensation or Pain at Site of Skin Impairment (Linda Romero RN) Status: Ongoing (Linda Romero RN) Outcome: Patients Incisions and Wounds will be without Signs or Symptoms of Infection (Linda Romero, JESSIKA) Status: Ongoing (Linda Romero RN) Outcome: Patient will Demonstrate Understanding of Plan to Heal Skin and Prevent Reinjury and Verbalize Risk Factors (Linda Romero RN) Status: Ongoing (Linda Romero RN) Parenting Impaired State: Risk For (Linda Romero RN) Related To: Apprehension Related to Care (iLnda Romero RN) Goal(s): Parents will Demonstrate Progressive Parenting Behaviors (Linda Romero RN) Interventions: Assess for Adequacy of Support Systems; Observe and Encourage Patient/Family Attachment and Bonding Activities and Provide Feedback; Assess Patient/Family Understanding of 's Condition and Provide Accurate Information About Condition, Treatment and Prognosis; Assess for Patient/Family Behaviors that May Indicate Lack of Attachment; Provide a Safe Non-judgmental Environment for Patient/Family to Discuss Concerns; Promote Patient/Family Cohesiveness by Encouraging Discussion and Problem Solving; Software Computer Specialist Referral as Indicated (Linda Romero RN) Outcome: Patient/Family will Discuss Their Fears and the Possibility of Difficulties with Parenting (Linda Romero RN) Status: Ongoing (Linda Romero RN) Outcome: Patient/Family will Exhibit Appropriate Bonding Behaviors with Infant (Linda Romero RN) Status: Ongoing (Linda Romero RN) Outcome: Patient/Family will Verbalize Positive Feelings and Demonstrate Affection and Caring Toward Infant (Linda Romero RN) Status: Ongoing (Linda Romero RN) Nutrition State: Risk For (Linda Romero RN) Related To: ; ; Surgical Procedure (Linda Romero RN) Goal(s): Patient will have an Intake of Nutrients Sufficient to Meet Metabolic Needs (Linda Romero RN) Interventions: Nutritional Screening and Assessment per Hospital Policy; Consult Professor Of Public Administration for Further Assessment and Recommendations Regarding Food Preferences and Nutritional Support; Allow Patient to Plan and Order Diet when Possible; Monitor Laboratory Values That Indicate Nutritional Well-being; Consult Humid System Operator for Nutritional Support Regarding Requirements; Document Actual Weight Initially and Weekly (Do Not Estimate); Encourage Patient Participation in Maintaining a Food Log as Indicated; Educate Patient on the Importance of Maintaining an Adequate Caloric Intake (Linda Romero RN) Outcome: Patient will Receive Adequate Calories and Fluid Volume to Meet Metabolic Needs (Linda Romero RN) Status: Ongoing (Linda Romero RN) Outcome: Patient will Select Foods or Meals that Support Adequate Nutrition (Linda Romero RN) Status: Ongoing (Linda Romero RN) Grieving State: Not Applicable (Linda Romero RN) Additional Care Plan State: Not Applicable (Linda Romero RN) Nursing Diagnosis or r/t: (Linda Romero RN) Goal(s): - every 2-3 hours -bottle feeding when only medically necessary after attempting to breastfeed -no pacifiers (Linda Romero RN) Interventions: -pci security consultant involvement (Linda Romero RN) Outcome Status: Ongoing (Linda Romero RN) Comments: patient bottlefeeding (Linda Romero RN)
[2016-06-30 07:18] LABS: HGB HCT DIFFERENCE -0.2; MEAN CORPUSCULAR HEMOGLOBIN 28.6 pg (27.0-33.4); MEAN CORPUSCULAR VOLUME 87 fl (80-97); RED CELL DISTRIBUTION WIDTH 16.1 % (11.5-14.0); WHITE BLOOD COUNT 11.4 10^3/uL (4.0-10.5)
[2016-06-30 07:29] LABS: HEMOGLOBIN 8.6 g/dL (12.0-15.5)
[2016-06-30] MEDS: DOCUSATE SODIUM 100 MG CAPSULE PO SCH ×2 (09:36→18:24)
[2016-06-30] MEDS: PRENATAL VITAMIN W-O CA NO5/FE FUMARATE/FA CAPSULE PO SCH (09:37)
--- NOTE | 2016-06-30 10:19 | PDOC PROGRESS REPORT ---
Subjective-OB Subjective: Post Delivery Day: 30 year old. Denies any needs at this time Physical Exam (OB) Vital Signs: Temp Pulse Resp BP Pulse Ox 97.6 F 87 18 108/56 L 98 06/30/16 08:34 06/30/16 08:34 06/30/16 08:34 06/30/16 08:34 06/30/16 04:52 Intake & Output 06/29/16 06/30/16 07/01/16 06:59 06:59 06:59 Intake Total 3315 Output Total 1750 Balance 1565 Weight 103.95 kg - Dressing Removed: Yes Incision: Dressing - Lochia Lochia Amount: Scant < 10 ml Lochia Color: Rubra/Red - Abdomen Description: Soft, Round Hernia Present: No Bowel Sounds: Normoactive Flatus Presence: Present Stool: No Fundal Description: Firm, Midline Fundal Height: u/u - u/2 - Genitourinary Genitourinary Note: Carey catheter in place-draining light yellow urine. Objective-Diagnostic Laboratory: 06/30/16 06:48 06/30/16 06:48 WBC 11.4 H RBC 3.00 L Hgb 8.6 L D Hct 26.0 L MCV 87 MCH 28.6 MCHC 33.0 RDW 16.1 H Plt Count 173
[2016-07-01] MEDS: IBUPROFEN 800 MG TABLET PO SCH ×2 (05:21→12:19)
[2016-07-01] MEDS: NITROFURANTOIN MONOHYD/M-CRYST 100 MG CAPSULE PO SCH (05:21)
--- NOTE | 2016-07-01 09:38 | PDOC DISCHARGE SUMMARY ---
Final Diagnosis Discharge Date: 07/01/16 Discharge Data - Discharge Medication Home Medications: Pnv W-O Ca No5/Fe Fumarate/FA [-U Multiple Vitamin Capsule] 1 each PO DAILY 04/27/12 Docusate Sodium [Colace 100 mg Capsule] 100 mg PO BID #60 capsule 07/01/16 Ferrous Sulfate [Feosol 325 mg Tablet] 325 mg PO MEALS #90 tab 07/01/16 Ibuprofen [Motrin 800 mg Tablet] 800 mg PO Q6 #60 tablet 07/01/16 Oxycodone HCl/Acetaminophen [Percocet 5-325 mg Tablet] 2 tab PO Q4HP PRN #30 tablet 07/01/16 Gestational Age: 40.2 Reason(s) for Admission: Onset of Labor Procedures: NST Intrapartum Procedure(s): : Low Cervical, Transverse, Other Intrapartum Procedure Note: primary c/s for brow presentation, bladder incision made during c/s - Data Baby 1 Female at 1 minute: 7 at 5 minutes: 9 Weight: 3590 kg Home with Mother: Yes Complications: No - Diagnosis Test Laboratory: Temp Pulse Resp BP Pulse Ox 97.6 F 79 18 104/64 100 07/01/16 04:39 07/01/16 04:39 07/01/16 04:39 07/01/16 04:39 07/01/16 04:39 06/28/16 06/28/16 06/30/16 20:21 20:35 06:48 RBC 4.65 3.00 L Hgb 13.0 8.6 L D Hct 40.0 26.0 L Urine Opiates Screen NEGATIVE - Discharge information/Instructions Discharge Activity: Activity As Tolerated, No Driving, No Lifting Over 10 Pounds , No Lifting/Push/Pulling, Pelvic Rest, No tub bath Discharge Diet: Regular Disposition: HOME, SELF-CARE Follow up with: [facility] in: 1, Weeks - pt sent home with tejada catheter and days of macrobid
[2016-07-01] MEDS: DOCUSATE SODIUM 100 MG CAPSULE PO SCH (09:46)
[2016-07-01] MEDS: PRENATAL VITAMIN W-O CA NO5/FE FUMARATE/FA CAPSULE PO SCH (09:46)
[2016-07-01 10:56] VITALS: BP 115/75
== END 2016-07-01 14:14 | disposition home or self-care (01) | DRG 766 ==
LOC: LR 20:16 → 2S 06-29 06:27
PROVIDERS: ADMIT Obstetrics & Gynecology; ATTEND Obstetrics & Gynecology
PROC: 10D00Z1 Extraction of Products of Conception, Low, Open Approach (ICD-10-PCS; principal; 2016-06-29)
PROC: 0T9B0ZZ Drainage of Bladder, Open Approach (ICD-10-PCS; 2016-06-29)
PROC: 4A1HXCZ Monitoring of Products of Conception, Cardiac Rate, External Approach (ICD-10-PCS; 2016-06-29)
DX: O64.3XX0 Obstructed labor due to brow presentation, not applicable or unspecified (principal); O75.89 Other specified complications of labor and delivery; N32.89 Other specified disorders of bladder; O77.0 Labor and delivery complicated by meconium in amniotic fluid; O99.824 Streptococcus B carrier state complicating childbirth; T83.091A Other mechanical complication of indwelling urethral catheter, initial encounter; O24.420 Gestational diabetes mellitus in childbirth, diet controlled; Z87.891 Personal history of nicotine dependence; Z3A.40 40 weeks gestation of pregnancy; Z37.0 Single live birth
CPT/HCPCS: 1961; 36415; 80307; 81005; 82962; 85025; 85027; 86592; 86850; 86900; 86901; 94760; 94799; J0330; J0690; J0696; J1885; J2175; J2250; J2270; J2370; J2405; J2540; J2590; J2704; J3010; J3490; J7120; J8499